=== PATIENT | male | born 1935 | race Caucasian/White ===

== ENCOUNTER → 2017-03-17 | Outpatient (CLI) | payer SELFPAY ==
[2017-03-17 08:27] LABS: Potassium 4.1 mmol/L (3.5-5.1)
== END | disposition home or self-care (01) ==
LOC: LABWHC1 07:32
PROVIDERS: ATTEND Internal Medicine Cardiovascular Disease
DX: I39 Endocarditis and heart valve disorders in diseases classified elsewhere (principal)
CPT/HCPCS: 36415; 80051; 82565; 84520

== ENCOUNTER 2018-11-08 13:11 | Inpatient (IN) | payer BC, MEDICARE ==
[2018-11-08 14:43] LABS: Basophils % (A) 1 %; Eosinophils # (A) 0.2 k/uL (0-0.7); Eosinophils % (A) 3 %; HCT 41.7 % (39.0-53.0); Hypochromasia Slight; Lymphocytes # (A) 0.6 k/uL (1.0-4.8); Lymphocytes % (A) 12 %; MCH 30.3 pg (25.0-35.0); MCHC 31.3 g/dL (31.0-37.0); MCV 96.8 fL (80.0-100.0); Mean Platelet Volume 7.5; Monocytes # (A) 0.5 k/uL (0-1.0); Monocytes % (A) 9 %; Neutrophils # (A) 4.1 k/uL (1.3-7.7); Neutrophils % (A) 74 %; Platelet Count 110 k/uL (150-450); WBC 5.5 k/uL (3.8-10.6)
[2018-11-08 14:48] LABS: INR 1.2 (<1.2); Partial Thromboplastin Time 25.3 sec (22.0-30.0); Prothrombin Time 12.4 sec (9.0-12.0)
[2018-11-08 14:49] LABS: Calcium 9.4 mg/dL (8.4-10.2)
--- NOTE | 2018-11-08 15:20 | XR ---
EXAMINATION TYPE: XR chest 2V DATE OF EXAM: 11/08/2018 COMPARISON: NONE HISTORY: Difficulty in breathing. TECHNIQUE: Frontal and lateral views of the chest are obtained. FINDINGS: There is redemonstration of cardiomegaly with dual lead pacemaker. Surgical clips epigastr ic region are redemonstrated. There is chronic emphysematous change with small to moderate-sized lef t pleural effusion. There is central vascular congestion present. Right lung is clear. The osseous st ructures are demineralized. Mild compression fracture is felt present in the mid to lower thoracic sp ine. Surgical clips epigastric region are noted. IMPRESSION: Chronic emphysematous change and cardiomegaly with mild central vascular congestion and small to moderate-sized left pleural effusion with associated left basilar atelectasis and/or infilt rate.
[2018-11-08 15:44] LABS: T4, Free (Free Thyroxine) 1.19 ng/dL (0.78-2.19)
--- NOTE | 2018-11-08 16:11 | ED ---
General Adult HPI - General Chief complaint: Recheck/Abnormal Lab/Rx Stated complaint: groin swelling,CARLITOS when laying down Time Seen by Provider: 11/08/18 13:39 Source: patient, family Mode of arrival: ambulatory Limitations: no limitations - History of Present Illness Initial comments: Patient is an 83-year-old male who presents to the emergency department from Dr. Majano's office. Patient has had 2 weeks of lower extremity and groin swelling. Family took him into [facility] 1.5 weeks ago and they placed the patient on Bactrim for possible cellulitis. Family reports that the patient did not have any laboratory studies or imaging performed at that time. Patient has been taking the medications as directed. The swelling has not improved. He followed up in Dr. Majano's office today who was concerned for the patient's respiratory status and lower extremity swelling. Family reports the patient has been unable to lay flat to sleep for "years". They also admit that the patient has had exertional shortness of breath which has been getting worse as of recent. The patient cannot ambulate across a room without stopping to rest. 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 He also has a "bad valve." They do believe he has a history of congestive heart failure also. He is on Lasix and has been taking it as directed. He has not missed any doses. He follows with Dr. Aceves in office. The family reports his last echo was 3 months ago. He was supposed to have his pacemaker battery changed one year ago. Family reports that Dr. Majano wanted the patient admitted and Dr. Aceves is going to change the patient's pacemaker battery during this admission. The patient is denying any pain. He denies any chest pain or abdominal pain. Denies any pain in his lower extremities. Does admit to abdominal and suprapubic fullness. Admits to exertional shortness of breath. No shortness of breath at rest. Patient is currently wearing oxygen for which he does not wear at home. He denies cough, hemoptysis, fevers, chills , nausea or vomiting. Denies a pleuritic chest pain or ripping or tearing sensation to his back. - Related Data Home Medications Medication Instructions Recorded Confirmed Atenolol [Tenormin] 25 mg PO DAILY 11/08/18 11/08/18 Ferrous Sulfate [Feosol] 325 mg PO DAILY 11/08/18 11/08/18 Furosemide [Lasix] 20 mg PO BID 11/08/18 11/08/18 Levothyroxine Sodium [Levoxyl] 25 mcg PO DAILY 11/08/18 11/08/18 Sulfamethoxazole/Trimethoprim 1 tab PO BID 11/08/18 11/08/18 [Bactrim DS 800-160 mg] Allergies Allergy/AdvReac Type Severity Reaction Status Date / Time No Known Allergies Allergy Verified 11/08/18 14:20 Review of Systems ROS Statement: Those systems with pertinent positive or pertinent negative responses have been documented in the HPI. ROS Other: All systems not noted in ROS Statement are negative. Past Medical History Past Medical History: Myocardial Infarction ([place]), Thyroid Disorder Additional Past Medical History / Comment(s): Pacemaker History of Any Multi-Drug Resistant Organisms: None Reported Past Surgical History: Pacemaker Past Psychological History: No Psychological Hx Reported Smoking Status: Former smoker Past Alcohol Use History: None Reported Past Drug Use History: None Reported General Exam Limitations: no limitations General appearance: alert, in no apparent distress Head exam: Present: atraumatic, normocephalic Eye exam: Present: normal appearance, other. Absent: scleral icterus Pupils: Present: normal accommodation ENT exam: Present: normal exam, mucous membranes moist Neck exam: Present: normal inspection, full ROM. Absent: tenderness, thyromegaly Respiratory exam: Present: wheezes, rales, other (The patient has mild tachypnea.). Absent: respiratory distress, accessory muscle use Cardiovascular Exam: Present: regular rate, normal rhythm, systolic murmur GI/Abdominal exam: Present: soft, normal bowel sounds. Absent: tenderness, guarding, rebound, rigid, pulsatile mass exam: Present: testicular tenderness, scrotal swelling, other (The patient has significant suprapubic swelling) External exam: Present: erythema. Absent: lesions Extremities exam: Present: tenderness, pedal edema, other (Patient has bilateral 4+ pitting edema with brawny edema. Significant skin flaking. There is also erythema noted. No pustular drainage) Neurological exam: Present: alert, oriented X3, CN II-XII intact Psychiatric exam: Present: normal affect, normal mood Skin exam: Present: warm, dry, erythema Course Vital Signs 11/08/18 11/08/18 11/08/18 13:14 15:00 17:18 Temperature 97.9 F Pulse Rate 62 60 60 Respiratory 18 18 18 Rate Blood Pressure 112/58 147/78 132/82 O2 Sat by Pulse 98 100 95 Oximetry - Reevaluation(s) Reevaluation #1: The patient was reexamined in the room. He is provided his results. I discussed the treatment plan and the patient and family agreed to admission 11/08/18 16:15 EKG Findings - EKG Comments: EKG Findings:: The patient has a ventricularly paced rhythm with a rate of 60. QRS 190, QTC of 500. EKG does not meet the Sgarbossa. Inverted T's noted in leads 1, aVL, V4 and V6 - [place], Pacemaker, Normal: Pacemaker: ventricular pacing w/capture (except when refractory) Medical Decision Making - Medical Decision Making The patient was placed into room 5. He is placed on continuous pulse ox and cardiac monitoring. The patient is placed on 2 L of O2. Physical exam reveals brawny edema of the suprapubic region and bilateral lower extremities. I did discuss the diagnosis, differential diagnosis and treatment options. The patient has laboratory studies drawn and he is sent for a chest x-ray. He did place a peripheral IV with saline lock. Upon return of the results I discussed them with the patient and his family at bedside. The patient has an elevated BNP and creatinine. His chest x-ray demonstrated pulmonary congestion with a left-sided pleural effusion. I did recommend admission to the hospital. The patient was admitted to Dr. Garcia. He did accept admission of the patient. I ordered 40 mg of Lasix IV. The patient will have an echo formed. I will place the patient on antibiotics for concern of overlying cellulitis. I will consult Dr. Tate from cardiology to help manage the patient. The patient remained in stable condition awaiting transport to the floor Differential diagnoses: Acute exacerbation of congestive heart failure, cellulitis bilateral lower extremities, acute hypoxic respiratory failure, chronic kidney disease, valvular heart disease - Differential Diagnosis Acute exacerbation of congestive heart failure - Lab Data Result diagrams: 11/08/18 14:18 11/08/18 14:18 Lab Results 11/08/18 11/08/18 11/08/18 Range/Units 14:18 14:18 14:18 WBC 5.5 (3.8-10.6) k/uL RBC 4.30 (4.30-5.90) m/uL Hgb 13.0 (13.0-17.5) gm/dL Hct 41.7 (39.0-53.0) % MCV 96.8 (80.0-100.0) fL MCH 30.3 (25.0-35.0) pg MCHC 31.3 (31.0-37.0) g/dL RDW 16.0 H (11.5-15.5) % Plt Count 110 L (150-450) k/uL Neutrophils % 74 % Lymphocytes % 12 % Monocytes % 9 % Eosinophils % 3 % Basophils % 1 % Neutrophils # 4.1 (1.3-7.7) k/uL Lymphocytes # 0.6 L (1.0-4.8) k/uL Monocytes # 0.5 (0-1.0) k/uL Eosinophils # 0.2 (0-0.7) k/uL Basophils # 0.0 (0-0.2) k/uL Hypochromasia Slight PT 12.4 H (9.0-12.0) sec INR 1.2 H (<1.2) APTT 25.3 (22.0-30.0) sec Sodium (137-145) mmol/L Potassium (3.5-5.1) mmol/L Chloride (98-107) mmol/L Carbon Dioxide (22-30) mmol/L Anion Gap mmol/L BUN (9-20) mg/dL Creatinine (0.66-1.25) mg/dL Est GFR (CKD-EPI)AfAm (>60 ml/min/1.73 sqM) Est GFR (CKD-EPI)NonAf (>60 ml/min/1.73 sqM) Glucose (74-99) mg/dL Calcium (8.4-10.2) mg/dL Troponin I 0.018 (0.000-0.034) ng/mL NT-Pro-B Natriuret Pep pg/mL TSH (0.465-4.680) mIU/L Free T4 (0.78-2.19) ng/dL 11/08/18 11/08/18 Range/Units 14:18 14:18 WBC (3.8-10.6) k/uL RBC (4.30-5.90) m/uL Hgb (13.0-17.5) gm/dL Hct (39.0-53.0) % MCV (80.0-100.0) fL MCH (25.0-35.0) pg MCHC (31.0-37.0) g/dL RDW (11.5-15.5) % Plt Count (150-450) k/uL Neutrophils % % Lymphocytes % % Monocytes % % Eosinophils % % Basophils % % Neutrophils # (1.3-7.7) k/uL Lymphocytes # (1.0-4.8) k/uL Monocytes # (0-1.0) k/uL Eosinophils # (0-0.7) k/uL Basophils # (0-0.2) k/uL Hypochromasia PT (9.0-12.0) sec INR (<1.2) APTT (22.0-30.0) sec Sodium 141 (137-145) mmol/L Potassium 5.0 (3.5-5.1) mmol/L Chloride 104 (98-107) mmol/L Carbon Dioxide 29 (22-30) mmol/L Anion Gap 8 mmol/L BUN 21 H (9-20) mg/dL Creatinine 1.30 H (0.66-1.25) mg/dL Est GFR (CKD-EPI)AfAm 59 (>60 ml/min/1.73 sqM) Est GFR (CKD-EPI)NonAf 51 (>60 ml/min/1.73 sqM) Glucose 93 (74-99) mg/dL Calcium 9.4 (8.4-10.2) mg/dL Troponin I (0.000-0.034) ng/mL NT-Pro-B Natriuret Pep 3590 pg/mL TSH 9.470 H (0.465-4.680) mIU/L Free T4 1.19 (0.78-2.19) ng/dL - EKG Data Rate: normal EKG Comments: Ventricularly paced rhythm with a rate of 60. QRS 190 QTC of 500 When compared to previous EKG there are: previous EKG unavailable Interpretation: nonspecific ST-T wave changes, other (Ventricularly paced rhythm ) - Radiology Data Radiology results: report reviewed, image reviewed Pulmonary vascular congestion with left pleural effusion Disposition Clinical Impression: Congestive heart failure Disposition: ADMITTED IP TO THIS HOSP Condition: Stable Is patient prescribed a controlled substance at d/c from ED?: No Decision to Admit Reason: Admit from EC Decision Date: 11/08/18 Decision Time: 04:30
[2018-11-08] MEDS ORDERED: FUROSEMIDE 10 MG/ML 2 ML VIAL IV STA (16:26)
[2018-11-08] MEDS ORDERED: ACETAMINOPHEN TAB 325 MG TAB PO PRN (16:46)
[2018-11-08] MEDS ORDERED: NALOXONE 0.4 MG/ML 1 ML VIAL IV PRN (16:46)
[2018-11-08] MEDS: ceFAZolin 1,000 MG in DEXTROSE/WATER 1 50ML.BAG IVPB SCH (23:36)
[2018-11-09] MEDS ORDERED: LEVOTHYROXINE 25 MCG TAB PO SCH (06:30)
[2018-11-09 06:44] LABS: Basophils % (A) 1 %; Eosinophils # (A) 0.2 k/uL (0-0.7); Eosinophils % (A) 4 %; HCT 39.9 % (39.0-53.0); HGB 12.2 gm/dL (13.0-17.5); Hypochromasia Moderate; Lymphocytes # (A) 0.6 k/uL (1.0-4.8); Lymphocytes % (A) 11 %; MCH 29.8 pg (25.0-35.0); MCHC 30.7 g/dL (31.0-37.0); MCV 97.2 fL (80.0-100.0); Mean Platelet Volume 7.7; Monocytes # (A) 0.4 k/uL (0-1.0); Monocytes % (A) 8 %; Neutrophils # (A) 3.6 k/uL (1.3-7.7); Neutrophils % (A) 74 %; Platelet Count 112 k/uL (150-450); RDW 15.7 % (11.5-15.5); WBC 4.8 k/uL (3.8-10.6)
[2018-11-09 07:00] LABS: Calcium 9.5 mg/dL (8.4-10.2); Potassium 4.8 mmol/L (3.5-5.1)
[2018-11-09] MEDS: ATENOLOL 25 MG TAB PO SCH (08:15)
[2018-11-09] MEDS: ceFAZolin 1,000 MG in DEXTROSE/WATER 1 50ML.BAG IVPB SCH ×2 (08:16→15:52)
[2018-11-09] MEDS ORDERED: FUROSEMIDE 20 MG TAB PO SCH (09:00)
--- NOTE | 2018-11-09 09:43 | P.CRDCN ---
History of Present Illness Consult date: 11/09/18 Requesting physician: Bipin Garcia Consult reason: congestive heart failure Chief complaint: Swelling and shortness of breath History of present illness: This is an 83-year-old gentleman who follows with Dr. Tate in the office, most of the history was obtained from his daughter who is at bedside. Patient does have history of permanent pacemaker implant, she states that the last time the patient saw Dr. Aceves in the office he was told that the battery at some point soon will need to be changed. Patient does have history of hypothyroidism, hypertension. Patient follows with Dr. Majano as his primary care doctor, over the past couple of weeks patient has had significant amount of lower extremity swelling up to his bilateral groin areas, according to the daughter they did go to [facility] one and a half weeks ago, patient was placed on Bactrim at that time for possible cellulitis. He continued to have further swelling and was also getting quite short of breath, he followed up in Dr. Majano's office, and subsequently was advised to come to the hospital for further evaluation and treatment. Chest x-ray shows chronic emphysema change and cardiomegaly with mild central vascular congestion and small to moderate sized left pleural effusion. EKG shows a ventricular paced rhythm. Blood pressure 112/60 with a heart rate in the 60s, 98% on room air. Most recent echocardiogram with Doppler study performed in the office showed an ejection fraction of 45%, severe mitral regurgitation and mild to moderate aortic regurg. White blood cell count 4.8, hemoglobin 12.2, platelet count 112. Sodium 140, potassium 4.8, BUN 20 and creatinine 1.4. Troponins 0.018, 0.016, 0.020. TSH 9.4 free T4 1 0.1. BNP level 3590. We will discontinue the oral diuretics and start the patient on IV Lasix, obtain an echocardiogram with Doppler study. Past Medical History Past Medical History: Eye Disorder, Hearing Disorder / Deafness, Myocardial Infarction ([place]), Thyroid Disorder Additional Past Medical History / Comment(s): Pacemaker Last Myocardial Infarction Date:: 2007 History of Any Multi-Drug Resistant Organisms: None Reported Past Surgical History: Hernia Repair, Pacemaker Past Anesthesia/Blood Transfusion Reactions: No Reported Reaction Type of Cardiac Device: Permanent Pacemaker Device Placement Date:: 2007 Past Psychological History: No Psychological Hx Reported Smoking Status: Former smoker Past Alcohol Use History: None Reported Past Drug Use History: None Reported Medications and Allergies Home Medications Medication Instructions Recorded Confirmed Type Atenolol [Tenormin] 25 mg PO DAILY 11/08/18 11/08/18 History Ferrous Sulfate [Feosol] 325 mg PO DAILY 11/08/18 11/08/18 History Furosemide [Lasix] 20 mg PO BID 11/08/18 11/08/18 History Levothyroxine Sodium [Levoxyl] 25 mcg PO DAILY 11/08/18 11/08/18 History Sulfamethoxazole/Trimethoprim 1 tab PO BID 11/08/18 11/08/18 History [Bactrim DS 800-160 mg] Allergies Allergy/AdvReac Type Severity Reaction Status Date / Time No Known Allergies Allergy Verified 11/08/18 14:20 Physical Exam Vitals: Vital Signs Temp Pulse Pulse Resp BP BP Pulse Ox 11/09/18 08:00 98.2 F 60 18 128/60 92 L 11/09/18 04:00 98 F 57 L 18 124/60 95 11/09/18 00:00 61 18 11/08/18 23:48 98.5 F 61 18 118/59 96 11/08/18 20:00 98.4 F 60 20 135/61 95 11/08/18 19:46 98.4 F 60 20 135/61 95 11/08/18 19:13 98.7 F 62 17 151/67 96 11/08/18 18:49 64 81 H 141/73 11/08/18 17:18 60 18 132/82 95 11/08/18 15:00 60 18 147/78 100 11/08/18 13:14 97.9 F 62 18 112/58 98 Intake and Output 11/08/18 11/09/18 11/09/18 22:59 06:59 14:59 Intake Total 120 Output Total 1300 1000 Balance -1300 -1000 120 Intake: Oral 120 Output: Urine 1300 1000 Other: # Voids 1 Weight 86.591 kg 86.6 kg PHYSICAL EXAMINATION: GENERAL: 83-year-old gentleman in no acute distress at the time of my examination HEENT: Head is atraumatic, normocephalic. Pupils equal, round. Sclera anicteric. Conjunctiva are clear. Mucous membranes of the mouth are moist. Neck is supple. There is elevated jugular venous pressure. No bruit is heard. HEART EXAMINATION: Heart S1-S2 a systolic murmur is heard CHEST EXAMINATION: Lungs reveal diminished air entry to the left posterior base according her way up. ABDOMEN: Soft, nontender. Bowel sounds are heard. No organomegaly noted. EXTREMITIES: 2+ peripheral pulses evidence of edema in bilateral lower extremities up to the groins bilaterally. Chronic venous stasis and ear erythema noted bilaterally. . NEUROLOGIC patient is awake, alert and oriented X3. . Results 11/09/18 05:52 11/09/18 05:52 Cardiac Enzymes 11/08/18 11/08/18 11/09/18 Range/Units 14:18 19:41 02:10 Troponin I 0.018 0.016 0.020 (0.000-0.034) ng/mL Coagulation 11/08/18 Range/Units 14:18 PT 12.4 H (9.0-12.0) sec APTT 25.3 (22.0-30.0) sec CBC 11/08/18 11/09/18 Range/Units 14:18 05:52 WBC 5.5 4.8 (3.8-10.6) k/uL RBC 4.30 4.10 L (4.30-5.90) m/uL Hgb 13.0 12.2 L (13.0-17.5) gm/dL Hct 41.7 39.9 (39.0-53.0) % Plt Count 110 L 112 L (150-450) k/uL Comprehensive Metabolic Panel 11/08/18 11/09/18 Range/Units 14:18 05:52 Sodium 141 140 (137-145) mmol/L Potassium 5.0 4.8 (3.5-5.1) mmol/L Chloride 104 103 (98-107) mmol/L Carbon Dioxide 29 31 H (22-30) mmol/L BUN 21 H 20 (9-20) mg/dL Creatinine 1.30 H 1.42 H (0.66-1.25) mg/dL Glucose 93 96 (74-99) mg/dL Calcium 9.4 9.5 (8.4-10.2) mg/dL Current Medications Generic Name Dose Route Start Last Admin Trade Name Freq PRN Reason Stop Dose Admin Acetaminophen 650 mg 11/08/18 16:46 Tylenol Tab PO Q6HR PRN Mild Pain or Fever > 100.5 Atenolol 25 mg 11/09/18 09:00 11/09/18 08:15 Tenormin PO 25 mg DAILY TRACY Administration Ferrous Sulfate 325 mg 11/09/18 09:00 Feosol PO DAILY TRACY Furosemide 20 mg 11/09/18 09:00 Lasix PO 0900,1700 TARCY Cefazolin Sodium/Dextrose 1, 50 mls @ 100 mls/hr 11/09/18 00:00 11/09/18 08:16 000 mg/ IV Solution IVPB 100 mls/hr Q8HR TRACY Administration Levothyroxine Sodium 25 mcg 11/09/18 06:30 11/09/18 06:44 Synthroid PO 25 mcg DAILY@0630 TRACY Administration Naloxone HCl 0.2 mg 11/08/18 16:46 Narcan IV Q2M PRN Opioid Reversal Intake and Output 11/08/18 11/09/18 11/09/18 22:59 06:59 14:59 Intake Total 120 Output Total 1300 1000 Balance -1300 -1000 120 Intake: Oral 120 Output: Urine 1300 1000 Other: # Voids 1 Weight 86.591 kg 86.6 kg 11/09/18 05:52 11/09/18 05:52 EKG Interpretations (text) EKG shows a ventricular paced rhythm. Assessment and Plan Plan: Assessment and plan #1 symptoms of bilateral lower extremity edema and shortness of breath suggestive of congestive cardiac failure. Diastolic acute on chronic. Most recent echo performed in the office showed an ejection fraction of 45% with severe mitral regurg and mild to moderate aortic regurg. #2 nicotine dependence #3 history of prior pacemaker implantation #4 hypertension #5 hypothyroidism #6 acute on chronic renal insufficiency Plan We will discontinue the oral diuretics and start the patient on IV Lasix. Obt ain echocardiogram with Doppler study. Consider the addition of Entresto. Further recommendations to follow. DNP note has been reviewed, I agree with a documented findings and plan of care. Patient was seen and examined.
[2018-11-09 10:19] VITALS: BMI 27.3
--- NOTE | 2018-11-09 10:43 | P.HPIM ---
History of Present Illness H&P Date: 11/09/18 This is an 83-year-old male patient of Dr. Majano. Patient presented to the ER with complaints of increased lower extremity and groin swelling. Patient reports this is been occurring for 2 weeks. About a week and a half ago patient presented to his PCP which further recommended patient to go to [facility]. At that time patient was discharged on Bactrim for possible cellulitis. Patient reports that the swelling has not improved. Patient presented back to Dr. Majano's office in which he expressed concerns for possible CHF. Patient reports he has been unable to lay flat for years and also gets very short of breath with ambulation. Patient is on home Lasix in which she has been taking. Patient does believe he has history of CHF and follows with cardiology services. Patient's additional medical history includes myocardial infarction, thyroid disease, permanent pacemaker in 2007, deafness and ex-smoker. Chest x-ray completed showing chronic apathy matter change in ca rdiomegaly with mild central vascular congestion and small to moderate left pleural effusion with associated left basal atelectasis and/or infiltrate. Cardiology services consulted. 2-D echo has been ordered. Patient started on IV Lasix. Patient also started on IV antibiotics for possible lower extremity cellulitis. At this time patient denies chest pain. Patient does complain of some shortness of breath with lying flat inactivity. Patient denies nausea vomiting or diarrhea. Patient denies any urinary burning or frequency. Review of Systems Please refer to HPI otherwise unremarkable Past Medical History Past Medical History: Eye Disorder, Hearing Disorder / Deafness, Myocardial Infarction ([place]), Thyroid Disorder Additional Past Medical History / Comment(s): Pacemaker Last Myocardial Infarction Date:: 2007 History of Any Multi-Drug Resistant Organisms: None Reported Past Surgical History: Hernia Repair, Pacemaker Past Anesthesia/Blood Transfusion Reactions: No Reported Reaction Type of Cardiac Device: Permanent Pacemaker Device Placement Date:: 2007 Past Psychological History: No Psychological Hx Reported Smoking Status: Former smoker Past Alcohol Use History: None Reported Past Drug Use History: None Reported Medications and Allergies Home Medications Medication Instructions Recorded Confirmed Type Atenolol [Tenormin] 25 mg PO DAILY 11/08/18 11/08/18 History Ferrous Sulfate [Feosol] 325 mg PO DAILY 11/08/18 11/08/18 History Furosemide [Lasix] 20 mg PO BID 11/08/18 11/08/18 History Levothyroxine Sodium [Levoxyl] 25 mcg PO DAILY 11/08/18 11/08/18 History Sulfamethoxazole/Trimethoprim 1 tab PO BID 11/08/18 11/08/18 History [Bactrim DS 800-160 mg] Allergies Allergy/AdvReac Type Severity Reaction Status Date / Time No Known Allergies Allergy Verified 11/08/18 14:20 Physical Exam Vitals: Vital Signs Temp Pulse Pulse Resp BP BP Pulse Ox 11/09/18 08:00 98.2 F 60 18 128/60 92 L 11/09/18 04:00 98 F 57 L 18 124/60 95 11/09/18 00:00 61 18 11/08/18 23:48 98.5 F 61 18 118/59 96 11/08/18 20:00 98.4 F 60 20 135/61 95 11/08/18 19:46 98.4 F 60 20 135/61 95 11/08/18 19:13 98.7 F 62 17 151/67 96 11/08/18 18:49 64 81 H 141/73 11/08/18 17:18 60 18 132/82 95 11/08/18 15:00 60 18 147/78 100 11/08/18 13:14 97.9 F 62 18 112/58 98 Intake and Output 11/08/18 11/09/18 11/09/18 22:59 06:59 14:59 Intake Total 120 Output Total 1300 1000 Balance -1300 -1000 120 Intake: Oral 120 Output: Urine 1300 1000 Other: # Voids 1 Weight 86.591 kg 86.6 kg 86.6 kg Head normocephalic Neck supple Lungs diminished bilaterally Heart regular rate and rhythm S1-S2, no rub or gallop Abdomen is soft nontender nondistended positive bowel sounds no hepatosplenomegaly Extremities +1 lower extreme any edema and +2 scrotal edema. Erythema noted to bilateral lower extremities Neuro alert and orientated to 3 Results CBC & Chem 7: 11/09/18 05:52 11/09/18 05:52 Labs: Abnormal Lab Results - Last 24 Hours (Table) 11/08/18 11/08/18 11/08/18 Range/Units 14:18 14:18 14:18 RBC (4.30-5.90) m/uL Hgb (13.0-17.5) gm/dL MCHC (31.0-37.0) g/dL RDW 16.0 H (11.5-15.5) % Plt Count 110 L (150-450) k/uL Lymphocytes # 0.6 L (1.0-4.8) k/uL PT 12.4 H (9.0-12.0) sec INR 1.2 H (<1.2) Carbon Dioxide (22-30) mmol/L BUN 21 H (9-20) mg/dL Creatinine 1.30 H (0.66-1.25) mg/dL TSH 9.470 H (0.465-4.680) mIU/L 11/09/18 11/09/18 Range/Units 05:52 05:52 RBC 4.10 L (4.30-5.90) m/uL Hgb 12.2 L (13.0-17.5) gm/dL MCHC 30.7 L (31.0-37.0) g/dL RDW 15.7 H (11.5-15.5) % Plt Count 112 L (150-450) k/uL Lymphocytes # 0.6 L (1.0-4.8) k/uL PT (9.0-12.0) sec INR (<1.2) Carbon Dioxide 31 H (22-30) mmol/L BUN (9-20) mg/dL Creatinine 1.42 H (0.66-1.25) mg/dL TSH (0.465-4.680) mIU/L Thrombosis Risk Factor Assmnt - Choose All That Apply Any of the Below Risk Factors Present?: Yes Each Factor Represents 1 point: Obesity (BMI >25) Other Risk Factors: Yes Each Risk Factor Represents 3 Points: Age 75 years or older Other congenital or acquired thrombophilia - If yes, enter type in comment: No Thrombosis Risk Factor Assessment Total Risk Factor Score: 4 Thrombosis Risk Factor Assessment Level: Moderate Risk Assessment and Plan Assessment: 1. Bilateral lower extremity edema with shortness of breath likely due to acute on chronic diastolic heart failure exacerbation. Patient started on IV Lasix per cardiology services. Patient had a recent 2-D echo performed in cardiology office showing an EF of 45% with severe mitral regurg and mild to moderate aortic regurg. Repeat 2-D echo has been ordered for this admission. 2. Possible lower extremity cellulitis. Patient started on Kefzol IV antibiotics 3. Acute on chronic renal insufficiency. Creatinine 1.42. We'll continue to monitor closely 4. Hypothyroidism. TSH level elevated at 9.470. Will increase Synthroid dose. 5. Permanent pacemaker implantation in 2007 6. Essential hypertension 7. Previous history of myocardial infarction 8. Deafness GI prophylaxis Protonix. DVT prophylaxis Lovenox Time with Patient: Greater than 30 (Greater than 60% of the total time spent in counseling and coordination of care. I performed an examination of the patient and discussed their management with the Nurse Practitioner. I have reviewed the Nurse Practitioner's notes and agree with the documented findings and plan of care)
--- NOTE | 2018-11-09 11:02 | US ---
EXAMINATION TYPE: US chest DATE OF EXAM: 11/09/2018 COMPARISON: NONE CLINICAL HISTORY: assess left effusion. sob TECHNIQUE: Targeted ultrasound of the posterior lower LEFT EXAM MEASUREMENTS: Left Pleural Effusion pocket size: 11.1 cm Left skin surface to fluid distance: 2.7 cm Left side marked for possible thoracentesis outside the dept. Pulmonologists are able to review the images in the patient?s EMR. IMPRESSIONS: Left pleural effusion
[2018-11-09] MEDS: FUROSEMIDE 10 MG/ML 4 ML VIAL IV SCH ×2 (12:30→21:46)
[2018-11-09] MEDS: FERROUS SULFATE 325 MG TAB PO SCH (12:31)
--- NOTE | 2018-11-09 16:53 | XR ---
EXAMINATION TYPE: XR chest 1V DATE OF EXAM: 11/09/2018 COMPARISON: Yesterday HISTORY: Thoracentesis TECHNIQUE: Single frontal view of the chest is obtained. FINDINGS: Heart is enlarged. There is mild pulmonary congestion. There is atheromatous aorta. There is a left axillary pacemaker. There are chest leads. Costophrenic angles are clear. IMPRESSION: Mild congestive heart failure that is improved compared to yesterday. There is significa nt decreased left pleural fluid. No pneumothorax.
--- NOTE | 2018-11-09 17:17 | PCN ---
PROCEDURE NOTE PROCEDURE PERFORMED: Left-sided thoracentesis. PREOPERATIVE DIAGNOSIS: Large left pleural effusion. POSTOPERATIVE DIAGNOSIS: Large left pleural effusion. ANESTHESIA USED: 2 mL of 1% lidocaine. PROCEDURE IN DETAIL: The patient was placed in a sitting upright position, the area below the left scapula was prepared in a sterile fashion and drapes were applied. The area of the fluid was earlier localized by ultrasound guidance. At the level of the 9th intercostal space and tip of the scapula, the area was anesthetized using lidocaine. Then, a 26-gauge needle was inserted at the same site, advanced into the pleural space until the fluid was localized with the needle. Then a small tiny incision was made in the skin, and a standard needle with catheter were used, advanced into the same site into the pleural space until fluid was obtained. As soon as the fluid was obtained, the catheter was advanced out of the needle and the needle was pulled out of the pleural space. Freely flowing fluid was removed, roughly 1450 mL were drained from the left pleural space. Procedure was well tolerated, no evidence of any complications. Chest x-ray was ordered postoperatively. The fluid was sent for different diagnostic studies, it looked questionably clear, and grossly suggestive of transudative effusion. MMODL / IJN: [id number] /
--- NOTE | 2018-11-09 17:24 | P.CNPUL ---
History of Present Illness Consult date: 11/09/18 Requesting physician: Bipin Garcia Reason for consult: pleural effusion Chief complaint: Shortness of breath History of present illness: This is an 83-year-old white male with history of coronary artery disease, previous MT, history of pacemaker implantation, patient normally sees Dr. Aceves on outpatient basis for his cardiac condition. Patient is also known to have history of hypertension, hypothyroidism, and he normally follows up with Dr. Majano as his primary care physician. Over the last couple of weeks, patient has been experiencing swelling in lower extremities, extending all the way up to the groin area. Patient was seen at [facility], and he was admitted about a few days ago, treated for cellulitis of the lower extremities with Bactrim, and he continued to have increased swelling in lower extremities. He saw his primary care physician who recommended that he goes to the emergency room. Patient was seen and he was found to have congestive heart failure bive ntricular in nature, and he was also found to have a good sized left-sided pleural effusion hence I was asked to see the patient on consultation. Patient was already seen by cardiology, and recommended Lasix at 40 mg IV push every 12 hours, I evaluated the patient, reviewed his chest x-ray and ultrasound of the chest, and proceeded to left sided thoracentesis. I was able to drain 1450 mL of fluid from the left pleural space. Chest x-ray showed complete resolution of the pleural effusion after the procedure. Looking back at his previous workup, patient is known to have history of LV dysfunction and ejection fraction is in the range of 45% he has history of severe mitral regurgitation and moderate aortic regurgitation. His BNP level on this admission was 3590. Patient had mostly shortness of breath and swelling in the legs, he had no chest pain, no nausea no vomiting no abdominal pain. No headaches no blurred vision no dizziness. No melena, no hematemesis, no dysuria and no frequency no urgency. Has been complaining however of swelling of lower extremities and some redness in both lower extremities for quite some time. Review of Systems 14 point review of systems were obtained, please refer to pertinent positives in HPI, otherwise remaining systems are negative. Past Medical History Past Medical History: Eye Disorder, Hearing Disorder / Deafness, Myocardial Infarction (MT), Thyroid Disorder Additional Past Medical History / Comment(s): Pacemaker Last Myocardial Infarction Date:: 2007 History of Any Multi-Drug Resistant Organisms: None Reported Past Surgical History: Hernia Repair, Pacemaker Past Anesthesia/Blood Transfusion Reactions: No Reported Reaction Type of Cardiac Device: Permanent Pacemaker Device Placement Date:: 2007 Past Psychological History: No Psychological Hx Reported Smoking Status: Former smoker Past Alcohol Use History: None Reported Past Drug Use History: None Reported Medications and Allergies Home Medications Medication Instructions Recorded Confirmed Type Atenolol [Tenormin] 25 mg PO DAILY 11/08/18 11/08/18 History Ferrous Sulfate [Feosol] 325 mg PO DAILY 11/08/18 11/08/18 History Furosemide [Lasix] 20 mg PO BID 11/08/18 11/08/18 History Levothyroxine Sodium [Levoxyl] 25 mcg PO DAILY 11/08/18 11/08/18 History Sulfamethoxazole/Trimethoprim 1 tab PO BID 11/08/18 11/08/18 History [Bactrim DS 800-160 mg] Allergies Allergy/AdvReac Type Severity Reaction Status Date / Time No Known Allergies Allergy Verified 11/08/18 14:20 Physical Exam Vitals: Vital Signs Temp Pulse Pulse Resp BP BP Pulse Ox 11/09/18 15:11 98.1 F 61 18 127/59 98 11/09/18 12:00 99.1 F 60 20 115/60 91 L 11/09/18 08:00 98.2 F 60 18 128/60 92 L 11/09/18 04:00 98 F 57 L 18 124/60 95 11/09/18 00:00 61 18 11/08/18 23:48 98.5 F 61 18 118/59 96 11/08/18 20:00 98.4 F 60 20 135/61 95 11/08/18 19:46 98.4 F 60 20 135/61 95 11/08/18 19:13 98.7 F 62 17 151/67 96 11/08/18 18:49 64 81 H 141/73 11/08/18 17:18 60 18 132/82 95 Intake and Output 11/09/18 11/09/18 11/09/18 06:59 14:59 22:59 Intake Total 240 Output Total 7755 625 4437 Balance -1000 40 -1000 Intake: Oral 240 Output: Urine 0086 518 1461 Other: # Voids 1 1 3 Weight 86.6 kg 86.6 kg Physical Exam: Revealed an 83-year-old white male in no distress. Very pleasant, on room air. Head: Atraumatic, normocephalic. HEENT:[Neck is supple.] [No neck masses.] [No thyromegaly.] [ Positive JVD.] PERRLA, EOMI, there is evidence of drooping of the left upper eyelid , moist mucous membranes were noted. Chest: Diminished breath sounds at the bases especially at the left base with dullness..] Cardiac Exam: [Normal S1 and S2, no S3 gallop, 2/6 systolic murmur thought the precordium. Abdomen: [Soft, nontender, no megaly, no rebound, no guarding, normal bowel sounds.] Extremities: [No clubbing, 2+ bipedal edema, extending from the ankles all the way up to the groin. Venous stasis changes noted, and erythema noted bilaterally. no cyanosis.] Diminished distal pulses bilaterally. 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 Right hand seems to be quite deformed. Neurological Exam: [No focal neurologic deficit. Alert and oriented 3. Psychiatric: Normal mood, affect and mental status examination. Lymphatics: No lymphadenopathy. Skin: Evidence of erythema of lower extremities noted, both lower extremities are warm to touch.] Results - Laboratory Findings CBC and BMP: 11/09/18 05:52 11/09/18 05:52 PT/INR, D-dimer PT 12.4 sec (9.0-12.0) H 11/08/18 14:18 INR 1.2 (<1.2) H 11/08/18 14:18 Abnormal lab findings: Abnormal Labs 11/08/18 11/08/18 11/08/18 14:18 14:18 14:18 RBC Hgb MCHC RDW 16.0 H Plt Count 110 L Lymphocytes # 0.6 L PT 12.4 H INR 1.2 H Carbon Dioxide BUN 21 H Creatinine 1.30 H TSH 9.470 H 11/09/18 11/09/18 05:52 05:52 RBC 4.10 L Hgb 12.2 L MCHC 30.7 L RDW 15.7 H Plt Count 112 L Lymphocytes # 0.6 L PT INR Carbon Dioxide 31 H BUN Creatinine 1.42 H TSH - Diagnostic Findings Chest x-ray: image reviewed (Chest x-ray clearly showed evidence of congestive heart failure, interstitial edema, and moderate sized left pleural effusion. There is also cardiomegaly and dual lead pacemaker noted.) Assessment and Plan Assessment: Impression: 1 acute congestive heart failure, mostly systolic in nature, ejection fraction is 45% and is also related to significant valvular heart disease with severe mitral regurgitation and moderate aortic regurgitation. 2 moderate sized left pleural effusion, I will arrange for thoracentesis, this was done and I was able to drain 1450 mL of fluid. 3 suspect acute on chronic renal failure stage III, likely cardiorenal in nature. 4 severe mitral valve and aortic valve disease contributing most likely significantly to his congestive heart failure. 5 benign essential hypertension 6 history of hypothyroidism 7 nicotine dependence syndrome patient was counseled regarding smoking cess ation. 8 prior pacemaker implantation for previous history of cardiac arrhythmia. 9 Suspect cellulitis of both lower extremities. Recommendation: I fully agree with the present treatment plan, including diuretics, he is presently on Lasix 40 mg IV push every 12 hours, he is on Lovenox subcu daily, cefazolin, is also on Protonix, levothyroxine, and atenolol. I went ahead and performed a left-sided thoracentesis, and I was able to obtain 1450 mL of fluid which looked fairly clear and most likely transudative in nature. This is clearly related to his underlying congestive heart failure. We'll continue to follow. Time with Patient: Greater than 30
[2018-11-09 19:14] LABS: Appearance,BF Clear; Color,BF Yellow; Mononuclear WBC,Body Fluid 82 %; Nucleated Cells, Body Fluid 59 /uL; Polynuclear WBC,Body Fluid 18 %; RBC, Body Fluid 79 /uL
[2018-11-10] MEDS: ceFAZolin 1,000 MG in DEXTROSE/WATER 1 50ML.BAG IVPB SCH ×4 (00:07→23:21)
[2018-11-10 02:27] LABS: Total Protein, Body Fluid 1850 mg/dL
[2018-11-10] MEDS: PANTOPRAZOLE 40 MG TABLET PO SCH (06:21)
[2018-11-10] MEDS: LEVOTHYROXINE 50 MCG TAB PO SCH (06:21)
[2018-11-10] MEDS ORDERED: LEVOTHYROXINE 75 MCG TAB PO SCH (06:30)
[2018-11-10 06:39] LABS: Basophils % (A) 1 %; Eosinophils # (A) 0.2 k/uL (0-0.7); Eosinophils % (A) 3 %; HCT 35.7 % (39.0-53.0); HGB 11.4 gm/dL (13.0-17.5); Lymphocytes # (A) 0.6 k/uL (1.0-4.8); Lymphocytes % (A) 12 %; MCH 30.7 pg (25.0-35.0); MCV 95.9 fL (80.0-100.0); Mean Platelet Volume 7.1; Monocytes # (A) 0.4 k/uL (0-1.0); Monocytes % (A) 8 %; Neutrophils # (A) 3.9 k/uL (1.3-7.7); Neutrophils % (A) 74 %; Platelet Count 109 k/uL (150-450); RBC 3.72 m/uL (4.30-5.90); RDW 15.9 % (11.5-15.5); WBC 5.3 k/uL (3.8-10.6)
[2018-11-10 07:07] LABS: Albumin 3.3 g/dL (3.5-5.0); Potassium 4.1 mmol/L (3.5-5.1); Total Protein 6.1 g/dL (6.3-8.2)
[2018-11-10] MEDS: ATENOLOL 25 MG TAB PO SCH (08:47)
[2018-11-10] MEDS: FERROUS SULFATE 325 MG TAB PO SCH (08:47)
[2018-11-10] MEDS: ENOXAPARIN 40 MG/0.4 ML SYRINGE SQ SCH (08:47)
[2018-11-10] MEDS: FUROSEMIDE 10 MG/ML 4 ML VIAL IV SCH (08:48)
--- NOTE | 2018-11-10 08:59 | ECHOF ---
Referral Reason:shortness of breath, heart failure MEASUREMENTS -------- HEIGHT: 180.3 cm WEIGHT: 86.2 kg BP: 124/60 RVIDd: 4.9 cm (< 3.3) IVSd: 1.3 cm (0.6 - 1.1) LVIDd: 3.4 cm (3.9 - 5.3) LVPWd: 1.4 cm (0.6 - 1.1) IVSs: 1.6 cm LVIDs: 2.6 cm LVPWs: 1.5 cm LAESV Index (A-L): 80.26 ml/m Ao Diam: 3.1 cm (2.0 - 3.7) AV Cusp: 1.4 cm (1.5 - 2.6) LA Diam: 5.1 cm (2.7 - 3.8) MV EXCURSION: 11.931 mm (> 18.000) MV EF SLOPE: 33 mm/s (70 - 150) EPSS: 0.6 cm MV E Rajiv: 2.13 m/s MV DecT: 663 ms MV A Rajiv: 0.55 m/s MV E/A Ratio: 3.86 AR PHT: 204 ms RAP: 5.00 mmHg RVSP: 70.97 mmHg FINDINGS -------- Paced rhythm. This was a technically difficult study with suboptimal views. The left ventricular size is normal. There is mild concentric left ventricular hypertrophy. Overa ll left ventricular systolic function is moderate-severely impaired with, an EF between 30 - 35 %. There is paradoxical/dysynergic septal motion consistent with right ventricular volume overload and/o r elevated right ventricular end-diastolic pressure. Basal inferoseptal LV wall motion is hypokinet ic. Basal anteroseptal LV wall motion is hypokinetic. Mid inferoseptal LV wall motion is hypoki netic. Mid anteroseptal LV wall motion is hypokinetic. Apical septum LV wall motion is hypokine tic. Septum is hypokinetic Basal inferolateral appears hypokinetic. The right ventricle is severely enlarged. LA is severely dilated >40 ml/m2 RA appears enlarged. Lumason used Aortic valve is trileaflet and is mildly thickened. There is mild aortic regurgitation. The mitral valve leaflets are moderately thickened. Moderate mitral annular calcification present. Severe mitral regurgitation is present. The peak and mean MV gradients are 26.17mmHg 5.46mmHg as measured by doppler. Moderate mitral stenosis. Moderate tricuspid regurgitation present. There is severe pulmonary hypertension. The right ventr icular systolic pressure, as measured by Doppler, is 70.97mmHg. Pulmonic valve appears structurally normal. The aortic root size is normal. IVC Not well visulized. There is a trivial pericardial effusion present. Large Pleural Effusion. CONCLUSIONS -------- 1. Paced rhythm. 2. This was a technically difficult study with suboptimal views. 3. The left ventricular size is normal. 4. There is mild concentric left ventricular hypertrophy. 5. Overall left ventricular systolic function is moderate-severely impaired with, an EF between 30 - 35 %. 6. There is paradoxical/dysynergic septal motion consistent with right ventricular volume overload an d/or elevated right ventricular end-diastolic pressure. 7. Basal inferoseptal LV wall motion is hypokinetic. 8. Mid inferoseptal LV wall motion is hypokinetic. 9. Mid anteroseptal LV wall motion is hypokinetic. 10. Apical septum LV wall motion is hypokinetic. 11. Septum is hypokinetic 12. Basal inferolateral appears hypokinetic. 13. The right ventricle is severely enlarged. 14. LA is severely dilated >40 ml/m2 15. RA appears enlarged. 16. Lumason used 17. Aortic valve is trileaflet and is mildly thickened. 18. There is mild aortic regurgitation. 19. The mitral valve leaflets are moderately thickened. 20. Moderate mitral annular calcification present. 21. Severe mitral regurgitation is present. 22. The peak and mean MV gradients are 26.17mmHg 5.46mmHg as measured by doppler. 23. Moderate mitral stenosis. 24. Moderate tricuspid regurgitation present. 25. There is severe pulmonary hypertension. 26. The right ventricular systolic pressure, as measured by Doppler, is 70.97mmHg. 27. Pulmonic valve appears structurally normal. 28. The aortic root size is normal. 29. IVC Not well visulized. 30. There is a trivial pericardial effusion present. 31. Large Pleural Effusion. COURTESY DRIVER: Rach Mai RDCS
--- NOTE | 2018-11-10 09:55 | P.PN ---
Subjective Progress Note Date: 11/10/18 This is an 83-year-old male patient of Dr. Majano. Patient presented to the ER with complaints of increased lower extremity and groin swelling. Patient reports this is been occurring for 2 weeks. About a week and a half ago patient presented to his PCP which further recommended patient to go to [facility]. At that time patient was discharged on Bactrim for possible cellulitis. Patient reports that the swelling has not improved. Patient presented back to Dr. Majano's office in which he expressed concerns for possible CHF. Patient reports he has been unable to lay flat for years and also gets very short of breath with ambulation. Patient is on home Lasix in which she has been taking. Patient does believe he has history of CHF and follows with cardiology services. Patient's additional medical history includes myocardial infarction, thyroid disease, permanent pacemaker in 2007, deafness and ex-smoker. Chest x-ray completed showing chronic apathy matter change in cardiomegaly with mild central vascular congestion and small to moderate left pleural effusion with associated left basal atelectasis and/or infiltrate. Cardiology services consulted. 2-D echo has been ordered. Patient started on IV Lasix. Patient also started on IV antibiotics for possible lower extremity cellulitis. At this time patient denies chest pain. Patient does complain of some shortness of breath with lying flat inactivity. Patient denies nausea vomiting or diarrhea. Patient denies any urinary burning or frequency. On 11/10/2018 patient is currently working with physical therapy ambulating through halls. Patient underwent paracentesis yesterday 1450 mL off. Patient reports that he feels much improved. Patient remains on IV Lasix at this time. Blood culture has been ordered to assess for lower Imtiaz cellulitis. Patient remains on Kefzol. At this time patient denies chest pain or shortness breath. Patient denies nausea vomiting or diarrhea. Patient denies any urinary burning or frequency Objective - Vital Signs Vital signs: Vital Signs Temp 97.1 F L 11/10/18 08:30 Pulse 61 11/10/18 08:30 Resp 18 11/10/18 08:30 BP 109/55 11/10/18 08:30 Pulse Ox 91 L 11/10/18 08:30 Intake & Output 11/09/18 11/10/18 11/10/18 18:59 06:59 18:59 Intake Total 240 250 Output Total 1200 500 Balance -960 -250 Weight 86.6 kg 80.1 kg Intake: Intake, IV Titration 50 Amount ceFAZolin 1,000 mg In 50 Dextrose/Water 1 50ml.bag @ 100 mls/hr IVPB Q8HR TRACY Rx#:[id number] Oral 240 200 Output: Urine 1200 500 Other: # Voids 3 1 - Exam Head normocephalic Neck supple Lungs diminished bilaterally Heart regular rate and rhythm S1-S2, no rub or gallop Abdomen is soft nontender nondistended positive bowel sounds no hepatosplenomegaly Extremities generalized lower extremity and scrotal edema. Erythema noted to bilateral lower extremities Neuro alert and orientated to 3 - Labs CBC & Chem 7: 11/10/18 06:07 11/10/18 06:07 Labs: Abnormal Lab Results - Last 24 Hours (Table) 11/10/18 11/10/18 Range/Units 06:07 06:07 RBC 3.72 L (4.30-5.90) m/uL Hgb 11.4 L (13.0-17.5) gm/dL Hct 35.7 L (39.0-53.0) % RDW 15.9 H (11.5-15.5) % Plt Count 109 L (150-450) k/uL Lymphocytes # 0.6 L (1.0-4.8) k/uL Carbon Dioxide 34 H (22-30) mmol/L BUN 26 H (9-20) mg/dL Creatinine 1.73 H (0.66-1.25) mg/dL Total Protein 6.1 L (6.3-8.2) g/dL Albumin 3.3 L (3.5-5.0) g/dL Microbiology - Last 24 Hours (Table) 11/09/18 15:50 Gram Stain - Preliminary Pleural Fluid Body Fluid Culture - Preliminary 11/09/18 15:50 Acid Fast Bacilli Culture - Preliminary Pleural Fluid 11/09/18 15:50 Fungal Culture - Preliminary Pleural Fluid Assessment and Plan Assessment: 1. Bilateral lower extremity edema with shortness of breath likely due to acute on chronic systolic heart failure exacerbation. Patient started on IV Lasix per cardiology services. Patient had a recent 2-D echo performed in cardiology office showing an EF of 45% with severe mitral regurg and mild to moderate aor tic regurg. Repeat 2-D echo has been ordered for this admission. 2. Left pleural effusion. Patient underwent thoracocentesis with Dr. Valencia 11/09/2018. 1450 mL fluid removed. Cytology sent 3. lower extremity cellulitis. Patient started on Kefzol IV antibiotics. Blood culture has been ordered 4. Acute on chronic renal insufficiency. Creatinine 1.73. We'll continue to monitor closely 5. Hypothyroidism. TSH level elevated at 9.470. Will increase Synthroid dose to 50 mics. 6. Permanent pacemaker implantation in 2007 7. Essential hypertension 8. Previous history of myocardial infarction 9. Deafness 10. Nicotine dependence. Patient educated greater than 3 minutes on smoking cessation. 11. Severe mitral valve and aortic valve disease contributing to patient's congestive heart failure. Cardiology services are following GI prophylaxis Protonix. DVT prophylaxis Lovenox I performed an examination of the patient and discussed their management with the Nurse Practitioner. I have reviewed the Nurse Practitioner's notes and agree with the documented findings and plan of care
--- NOTE | 2018-11-10 11:00 | XR ---
EXAMINATION TYPE: XR chest 2V DATE OF EXAM: 11/10/2018 COMPARISON: Prior chest x-ray 11/09/2018 HISTORY: Follow-up congestive heart failure TECHNIQUE: Frontal and lateral views of the chest are obtained. FINDINGS: Prominent lung volumes are again noted. Retrocardiac increased density is present, the lef t hemidiaphragm is obscured. Pacemaker is stable. Central vascularity and interstitium are increased. No evident pneumothorax. IMPRESSION: Correlate for pulmonary venous hypertension and interstitial edema, there may be left lo wer lobe atelectasis versus edema and associated effusion, correlate to exclude pneumonia. Follow-up is recommended.
[2018-11-10] MEDS: hydrALAZINE HCL 25 MG TAB PO SCH ×2 (13:45→20:29)
--- NOTE | 2018-11-10 14:51 | P.PN ---
Subjective This is a pleasant 83-year-old male falls Dr. Tate in the office past medical history significant for permanent pacemaker implantation and hypertension. He is being treated with IV lasix for cardiac congestive heart failure. Echo obtained on this admission reveals impaired left ventricular systolic function with ejection fraction 30-35%, mitral regurgitation, mitral stenosis and pulmonary hypertension. He underwent paracentesis of left pleural effusion yesterday with 1450 cc of fluid removed. Repeat chest xray performed today reveals pulmonary venous hypertension and interstitial edema. Laboratory data reviewed, WBC 5.3, hemoglobin 11.4, platelets 109, sodium 139, potassium 4.1, creatinine 1.73. His weight is down 5 kg from admission. Currently maintained on atenolol 25 mg daily and lasix 40 mg IV BID. He is seen and examined sitting up in the chair eating lunch in no acute distress. He denies shortness of breath, chest pain, dizziness or palpitations. GENERAL: Well-appearing, well-nourished and in no acute distress. NECK: Supple without JVD or thyromegaly. LUNGS: Breath sounds clear to auscultation bilaterally. Respiration equal and unlabored. No wheezes, rales or rhonchi. HEART: Regular rate and rhythm with systolic ejection murmur at the left sternal border, no rubs or gallops. S1 and S2 heard. EXTREMITIES: Normal range of motion, 1+ bilateral lower extremity edema with chronic venous stasis and eryhtema. No clubbing or cyanosis. Peripheral pulses intact. ASSESSMENT Acute systolic heart failure, EF 30-35% Mitral regurgitation and stenosis, severe mean gradient 5 mmHg Pulmonary hypertension, RVSP 70 mmHg Hypertension Acute on chronic kidney disease History of permanent pacemaker implantation secondary to sick sinus syndrome History recently of non-sustained ventricular tachycardia PLAN Transition to PO lasix and add hydralazine 25 mg BID. Repeat kidney function in the morning and if there is some improvement we will consider adding Entresto. We will continue to follow. Nurse Practitioner note has been reviewed, I agree with a documented findings and plan of care. Patient was seen and examined. Objective - Vital Signs Vital signs: Vital Signs Temp 98 F 11/10/18 11:50 Pulse 60 11/10/18 11:50 Resp 17 11/10/18 11:50 BP 130/67 11/10/18 11:50 Pulse Ox 94 L 11/10/18 11:50 Intake & Output 11/09/18 11/10/18 11/10/18 18:59 06:59 18:59 Intake Total 240 250 100 Output Total 8233 036 2781 Balance -960 -250 -900 Weight 86.6 kg 80.1 kg Intake: Intake, IV Titration 50 100 Amount ceFAZolin 1,000 mg In 50 100 Dextrose/Water 1 50ml.bag @ 100 mls/hr IVPB Q8HR TRACY Rx#:[id number] Oral 240 200 Output: Urine 8786 713 6853 Other: # Voids 3 1 - Labs CBC & Chem 7: 11/10/18 06:07 11/10/18 06:07 Labs: Abnormal Lab Results - Last 24 Hours (Table) 11/10/18 11/10/18 Range/Units 06:07 06:07 RBC 3.72 L (4.30-5.90) m/uL Hgb 11.4 L (13.0-17.5) gm/dL Hct 35.7 L (39.0-53.0) % RDW 15.9 H (11.5-15.5) % Plt Count 109 L (150-450) k/uL Lymphocytes # 0.6 L (1.0-4.8) k/uL Carbon Dioxide 34 H (22-30) mmol/L BUN 26 H (9-20) mg/dL Creatinine 1.73 H (0.66-1.25) mg/dL Total Protein 6.1 L (6.3-8.2) g/dL Albumin 3.3 L (3.5-5.0) g/dL Microbiology - Last 24 Hours (Table) 11/09/18 15:50 Gram Stain - Preliminary Pleural Fluid Body Fluid Culture - Preliminary 11/09/18 15:50 Acid Fast Bacilli Culture - Preliminary Pleural Fluid 11/09/18 15:50 Fungal Culture - Preliminary Pleural Fluid
--- NOTE | 2018-11-10 14:55 | P.PN ---
Subjective Progress Note Date: 11/10/18 Principal diagnosis: Acute congestive heart failure, with systolic dysfunction or valvular dysfunction, large left pleural effusion status post left-sided thoracentesis would removal of 1450 ML of fluid This is an 83-year-old white male with history of coronary artery disease, p revious SD, history of pacemaker implantation, patient normally sees Dr. Aceves on outpatient basis for his cardiac condition. Patient is also known to have history of hypertension, hypothyroidism, and he normally follows up with Dr. Majano as his primary care physician. Over the last couple of weeks, patient has been experiencing swelling in lower extremities, extending all the way up to the groin area. Patient was seen at [facility], and he was admitted about a few days ago, treated for cellulitis of the lower extremities with Bactrim, and he continued to have increased swelling in lower extremities. He saw his primary care physician who recommended that he goes to the emergency room. Patient was seen and he was found to have congestive heart failure biventricular in nature, and he was also found to have a good sized left-sided pleural effusion hence I was asked to see the patient on consultation. Patient was already seen by cardiology, and recommended Lasix at 40 mg IV push every 12 hours, I evaluated the patient, reviewed his chest x-ray and ultrasound of the chest, and proceeded to left sided thoracentesis. I was able to drain 1450 mL of fluid from the left pleural space. Chest x-ray showed complete resolution of the pleural effusion after the procedure. Looking back at his previous workup, patient is known to have history of LV dysfunction and ejection fraction is in the range of 45% he has history of severe mitral regurgitation and moderate aortic regurgitation. His BNP level on this admission was 3590. Patient had mostly shortness of breath and swelling in the legs, he had no chest pain, no nausea no vomiting no abdominal pain. No headaches no blurred vision no dizziness. No melena, no hematemesis, no dysuria and no frequency no urgency. Has been complaining however of swelling of lower extremities and some redness in both lower extremities for quite some time. On 11/10/2018 patient seen in follow-up on selective care unit, he is awake and alert, sitting up in the chair, in no acute distress, he still has some residual shortness of breath, no acute distress, room air pulse ox is 94%, no complaints of chest pain, patient is status post left-sided thoracentesis would removal of 1450 ML of pleural fluid, cultures are pending, pleural fluid analysis revealed transudative fluid, and cytology is pending at this time, patient continues to diurese, today's chest x-ray was reviewed by Dr. Post and shows pulmonary venous hypertension and interstitial edema, left lower lobe atelectasis and associated small pleural effusion. He is on IV Lasix of 40 mg every 12 hours, today's labs have been reviewed, and there has been slight worsening of patient's renal profile, with BUN of 26 and creatinine of 1.73. Teen negative fluid balance, and his lung status is improving, still has some residual lower extremity edema. Objective - Vital Signs Vital signs: Vital Signs Temp 98 F 11/10/18 11:50 Pulse 60 11/10/18 11:50 Resp 17 11/10/18 11:50 BP 130/67 11/10/18 11:50 Pulse Ox 94 L 11/10/18 11:50 Intake & Output 11/09/18 11/10/18 11/10/18 18:59 06:59 18:59 Intake Total 240 250 100 Output Total 8393 662 5072 Balance -960 -250 -900 Weight 86.6 kg 80.1 kg Intake: Intake, IV Titration 50 100 Amount ceFAZolin 1,000 mg In 50 100 Dextrose/Water 1 50ml.bag @ 100 mls/hr IVPB Q8HR [facility] Rx#:[id number] Oral 240 200 Output: Urine 5104 599 8158 Other: # Voids 3 1 - Exam GENERAL EXAM: Alert, pleasant, 83-year-old white male comfortable in no apparent distress. HEAD: Normocephalic/atraumatic. EYES: Normal reaction of pupils, equal size. Conjunctiva pink, sclera white. NOSE: Clear with pink turbinates. THROAT: No erythema or exudates. NECK: No masses, no JVD, no thyroid enlargement, no adenopathy. CHEST: No chest wall deformity. Symmetrical expansion. LUNGS: Equal air entry with mesh breath sounds, and bibasilar crackles CVS: Regular rate and rhythm, normal S1 and S2, no gallops, no murmurs, no rubs ABDOMEN: Soft, nontender. No hepatosplenomegaly, normal bowel sounds, no guarding or rigidity. EXTREMITIES: No clubbing, lower extremity edema, no cyanosis, 2+ pulses and upper and lower extremities. MUSCULOSKELETAL: Muscle strength and tone normal. SPINE: No scoliosis or deformity SKIN: No rashes CENTRAL NERVOUS SYSTEM: Alert and oriented -3. No focal deficits, tone is normal in all 4 extremities. PSYCHIATRIC: Alert and oriented -3. Appropriate affect. Intact judgment and insight. - Labs CBC & Chem 7: 11/10/18 06:07 11/10/18 06:07 Labs: Abnormal Lab Results - Last 24 Hours (Table) 11/10/18 11/10/18 Range/Units 06:07 06:07 RBC 3.72 L (4.30-5.90) m/uL Hgb 11.4 L (13.0-17.5) gm/dL Hct 35.7 L (39.0-53.0) % RDW 15.9 H (11.5-15.5) % Plt Count 109 L (150-450) k/uL Lymphocytes # 0.6 L (1.0-4.8) k/uL Carbon Dioxide 34 H (22-30) mmol/L BUN 26 H (9-20) mg/dL Creatinine 1.73 H (0.66-1.25) mg/dL Total Protein 6.1 L (6.3-8.2) g/dL Albumin 3.3 L (3.5-5.0) g/dL Microbiology - Last 24 Hours (Table) 11/09/18 15:50 Gram Stain - Preliminary Pleural Fluid Body Fluid Culture - Preliminary 11/09/18 15:50 Acid Fast Bacilli Culture - Preliminary Pleural Fluid 11/09/18 15:50 Fungal Culture - Preliminary Pleural Fluid Assessment and Plan Plan: Assessment: 1 acute congestive heart failure, mostly systolic in nature, ejection fraction is 45% and is also related to significant valvular heart disease with severe mitral regurgitation and moderate aortic regurgitation. 2 moderate sized left pleural effusion, I will arrange for thoracentesis, this was done and I was able to drain 1450 mL of fluid. 3 suspect acute on chronic renal failure stage III, likely cardiorenal in nature. 4 severe mitral valve and aortic valve disease contributing most likely significantly to his congestive heart failure. 5 benign essential hypertension 6 history of hypothyroidism 7 nicotine dependence syndrome patient was counseled regarding smoking cessation. 8 prior pacemaker implantation for previous history of cardiac arrhythmia. 9 Suspect cellulitis of both lower extremities. Plan: Chest x-ray has been reviewed by Dr. Post, and still shows interstitial prominence, but improvement in the appearance of left total effusion, enlarged patient status post left-sided thoracentesis, and pleural fluid analysis showed transudative fluid consistent with the diagnosis of congestive heart failure. Cytology is pending, pleural fluid cultures are pending, no fever or chills, no complaints of chest pain, no worsening dyspnea, with continue IV diuresis at this time she still has lower extremity edema, and some congestion and interstitial prominence on the chest x-ray. I performed a history & physical examination of the patient and discussed their management with my nurse practitioner, Miley Day. I reviewed the nurse practitioner's note and agree with the documented findings and plan of care. Lung sounds are positive for diminished breath sounds and bilateral crackles The findings and the impression was discussed with the patient. I attest to the documentation by the nurse practitioner. Time with Patient: Less than 30
[2018-11-10] MEDS: FUROSEMIDE 40 MG TAB PO SCH (15:13)
[2018-11-10] MEDS ORDERED: FUROSEMIDE 40 MG TAB PO SCH (16:00)
[2018-11-11] MEDS: PANTOPRAZOLE 40 MG TABLET PO SCH (06:47)
[2018-11-11] MEDS: LEVOTHYROXINE 50 MCG TAB PO SCH (06:47)
[2018-11-11 08:00] LABS: Albumin 3.5 g/dL (3.5-5.0); Calcium 9.1 mg/dL (8.4-10.2); Potassium 4.1 mmol/L (3.5-5.1); Total Bilirubin 1.2 mg/dL (0.2-1.3); Total Protein 6.5 g/dL (6.3-8.2)
[2018-11-11] MEDS: ATENOLOL 25 MG TAB PO SCH (09:48)
[2018-11-11] MEDS: hydrALAZINE HCL 25 MG TAB PO SCH (09:48)
[2018-11-11] MEDS: ENOXAPARIN 40 MG/0.4 ML SYRINGE SQ SCH (09:48)
[2018-11-11] MEDS: FERROUS SULFATE 325 MG TAB PO SCH (09:48)
[2018-11-11] MEDS: FUROSEMIDE 40 MG TAB PO SCH (09:48)
[2018-11-11] MEDS: ceFAZolin 1,000 MG in DEXTROSE/WATER 1 50ML.BAG IVPB SCH ×2 (11:36→17:54)
[2018-11-11 11:37] LABS: Anisocytosis Slight; Basophils % (A) 1 %; Eosinophils # (A) 0.1 k/uL (0-0.7); Eosinophils % (A) 2 %; HCT 37.9 % (39.0-53.0); HGB 12.2 gm/dL (13.0-17.5); Lymphocytes # (A) 0.7 k/uL (1.0-4.8); Lymphocytes % (A) 14 %; MCH 30.8 pg (25.0-35.0); MCHC 32.3 g/dL (31.0-37.0); MCV 95.4 fL (80.0-100.0); Mean Platelet Volume 7.4; Monocytes # (A) 0.5 k/uL (0-1.0); Monocytes % (A) 10 %; Neutrophils # (A) 3.9 k/uL (1.3-7.7); Neutrophils % (A) 73 %; Platelet Count 114 k/uL (150-450); RBC 3.97 m/uL (4.30-5.90); RDW 16.1 % (11.5-15.5); WBC 5.4 k/uL (3.8-10.6)
[2018-11-11] MEDS: SACUBITRIL/VALSARTAN 24 MG-26 MG TABLET PO SCH ×2 (13:06→21:05)
--- NOTE | 2018-11-11 13:19 | P.PN ---
Subjective Progress Note Date: 11/11/18 This is an 83-year-old male patient of Dr. Majano. Patient presented to the ER with complaints of increased lower extremity and groin swelling. Patient reports this is been occurring for 2 weeks. About a week and a half ago patient presented to his PCP which further recommended patient to go to [facility]. At that time patient was discharged on Bactrim for possible cellulitis. Patient reports that the swelling has not improved. Patient presented back to Dr. Majano's office in which he expressed concerns for possible CHF. Patient reports he has been unable to lay flat for years and also gets very short of breath with ambulation. Patient is on home Lasix in which she has been taking. Patient does believe he has history of CHF and follows with cardiology services. Patient's additional medical history includes myocardial infarction, thyroid disease, permanent pacemaker in 2007, deafness and ex-smoker. Chest x-ray completed showing chronic apathy matter change in cardiomegaly with mild central vascular congestion and small to moderate left pleural effusion with associated left basal atelectasis and/or infiltrate. Cardiology services consulted. 2-D echo has been ordered. Patient started on IV Lasix. Patient also started on IV antibiotics for possible lower extremity cellulitis. At this time patient denies chest pain. Patient does complain of some shortness of breath with lying flat inactivity. Patient denies nausea vomiting or diarrhea. Patient denies any urinary burning or frequency. On 11/10/2018 patient is currently working with physical therapy ambulating through halls. Patient underwent paracentesis yesterday 1450 mL off. Patient reports that he feels much improved. Patient remains on IV Lasix at this time. Blood culture has been ordered to assess for lower Imtiaz cellulitis. Patient remains on Kefzol. At this time patient denies chest pain or shortness breath. Patient denies nausea vomiting or diarrhea. Patient denies any urinary burning or frequency On 11/11/2018 patient is alert and oriented 3 in no apparent distress he denies any Dori at this time there is no fever or chills no headache or dizziness no chest pain no shortness of breath no cough no nausea or vomiting no abdominal pain no diarrhea and no urinary symptoms echocardiogram was done and revealed significant impairment in the left ventricular function with ejection fraction of 30-35% he was started on Entresto by cardiology Objective - Vital Signs Vital signs: Vital Signs Temp 97.9 F 11/11/18 08:00 Pulse 60 11/11/18 08:00 Resp 18 11/11/18 08:00 BP 108/58 11/11/18 08:00 Pulse Ox 87 L 11/11/18 08:00 Intake & Output 11/10/18 11/11/18 11/11/18 18:59 06:59 18:59 Intake Total 410 60 Output Total 1000 300 645 Balance -590 -300 -585 Weight 79.4 kg Intake: Intake, IV Titration 300 Amount ceFAZolin 1,000 mg In 300 Dextrose/Water 1 50ml.bag @ 100 mls/hr IVPB Q8HR [facility] Rx#:[id number] Oral 110 60 Output: Urine 1000 300 645 Other: # Voids 1 - Exam Head normocephalic and atraumatic Neck supple no JVD no goiter Lungs diminished bilaterally a few scattered rhonchi no wheezing Heart regular rate and rhythm S1-S2, no rub or gallop Abdomen is soft nontender nondistended positive bowel sounds no hepatosplenomegaly Extremities generalized lower extremity and scrotal edema. Erythema noted to bilateral lower extremities Neuro alert and orientated to 3 - Labs CBC & Chem 7: 11/11/18 07:01 11/11/18 07:01 Labs: Abnormal Lab Results - Last 24 Hours (Table) 11/11/18 11/11/18 Range/Units 07:01 07:01 RBC 3.97 L (4.30-5.90) m/uL Hgb 12.2 L (13.0-17.5) gm/dL Hct 37.9 L (39.0-53.0) % RDW 16.1 H (11.5-15.5) % Plt Count 114 L (150-450) k/uL Lymphocytes # 0.7 L (1.0-4.8) k/uL BUN 32 H (9-20) mg/dL Creatinine 1.44 H (0.66-1.25) mg/dL Glucose 105 H (74-99) mg/dL Microbiology - Last 24 Hours (Table) 11/09/18 15:50 Acid Fast Bacilli Smear - Final Pleural Fluid Acid Fast Bacilli Culture - Preliminary 11/09/18 15:50 Gram Stain - Preliminary Pleural Fluid Body Fluid Culture - Preliminary 11/09/18 14:32 Blood Culture - Preliminary Blood No Growth after 24 hours Assessment and Plan Plan: 1. Bilateral lower extremity edema with shortness of breath likely due to acute on chronic systolic heart failure exacerbation. Patient started on IV Lasix per cardiology services. Patient had a recent 2-D echo performed in cardiology office showing an EF of 45% with severe mitral regurg and mild to moderate aortic regurg. Repeat 2-D echo has been ordered for this admission and it showed significantly depressed ejection fraction to 30-35% at this time patient was started on Entresto. 2. Left pleural effusion. Patient underwent thoracocentesis with Dr. Valencia 11/09/2018. 1450 mL fluid removed. Cytology sent 3. lower extremity cellulitis. Patient started on Kefzol IV antibiotics. Blood culture has been ordered 4. Acute on chronic renal insufficiency. Creatinine 1.73. We'll continue to monitor closely 5. Hypothyroidism. TSH level elevated at 9.470. Will increase Synthroid dose to 50 mics. 6. Permanent pacemaker implantation in 2007 7. Essential hypertension 8. Previous history of myocardial infarction 9. Deafness 10. Nicotine dependence. Patient educated greater than 3 minutes on smoking cessation. 11. Severe mitral valve and aortic valve disease contributing to patient's congestive heart failure. Cardiology services are following GI prophylaxis Protonix. DVT prophylaxis Lovenox
--- NOTE | 2018-11-11 13:36 | P.PN ---
Subjective Progress Note Date: 11/11/18 Principal diagnosis: acute on chronic systolic congestive heart failure. This is an 83-year-old white male with history of coronary artery disease, previous PR, history of pacemaker implantation, patient normally sees Dr. Aceves on outpatient basis for his cardiac condition. Patient is also known to have history of hypertension, hypothyroidism, and he normally follows up with Dr. Majano as his primary care physician. Over the last couple of weeks, patient has been experiencing swelling in lower extremities, extending all the way up to the groin area. Patient was seen at [facility], and he was admitted about a few days ago, treated for cellulitis of the lower extremities with Bactrim, and he continued to have increased swelling in lower extremities. He saw his primary care physician who recommended that he goes to the emergency room. Patient was seen and he was found to have congestive heart failure biventricular in nature, and he was also found to have a good sized left-sided pleural effusion hence I was asked to see the patient on consultation. Patient was already seen by cardiology, and recommended Lasix at 40 mg IV push every 12 hours, I evaluated the patient, reviewed his chest x-ray and ultrasound of the chest, and proceeded to left sided thoracentesis. I was able to drain 1450 mL of fluid from the left pleural space. Chest x-ray showed complete resolution of the pleural effusion after the procedure. Looking back at his previous workup, patient is known to have history of LV dysfunction and ejection fraction is in the range of 45% he has history of severe mitral regurgitation and moderate aortic regurgitation. His BNP level on this admission was 3590. Patient had mostly shortness of breath and swelling in the legs, he had no chest pain, no nausea no vomiting no abdominal pain. No headaches no blurred vision no dizziness. No melena, no hematemesis, no dysuria and no frequency no urgency. Has been complaining however of swelling of lower extremities and some redness in both lower extremities for quite some time. On 11/10/2018 patient seen in follow-up on selective care unit, he is awake and alert, sitting up in the chair, in no acute distress, he still has some residual shortness of breath, no acute distress, room air pulse ox is 94%, no complaints of chest pain, patient is status post left-sided thoracentesis would removal of 1450 ML of pleural fluid, cultures are pending, pleural fluid analysis revealed transudative fluid, and cytology is pending at this time, patient continues to diurese, today's chest x-ray was reviewed by Dr. Post and shows pulmonary venous hypertension and interstitial edema, left lower lobe atelectasis and associated small pleural effusion. He is on IV Lasix of 40 mg every 12 hours, today's labs have been reviewed, and there has been slight worsening of patient's renal profile, with BUN of 26 and creatinine of 1.73. Teen negative fluid balance, and his lung status is improving, still has some residual lower extremity edema. Reevaluated today on 11/11/2018, patient seems to be quite comfortable, in no distress, denies any shortness of breath, no cough, no wheezing. Remains on diuretics for his congestive heart failure, and his pulse oximetry is showing 94% on room air.the pleural effusion which I drained is clearly transudative in nature low protein, low LDH, and it is related to congestive heart failure unless for otherwise.the cytology on the fluid is expected to be negative. However the report is pending.all his labs today were reviewed, BUN is 32 creati nine is 1.44 and his electrolytes are normal. Patient is feeling much better compared to how he felt upon presentation. However his last chest x-ray continued to show some interstitial edema. Objective - Vital Signs Vital signs: Vital Signs Temp 97.6 F 11/11/18 12:00 Pulse 58 L 11/11/18 12:00 Resp 20 11/11/18 12:00 BP 122/66 11/11/18 12:00 Pulse Ox 100 11/11/18 12:00 Intake & Output 11/10/18 11/11/18 11/11/18 18:59 06:59 18:59 Intake Total 410 60 Output Total 1000 300 645 Balance -590 -300 -585 Weight 79.4 kg Intake: Intake, IV Titration 300 Amount ceFAZolin 1,000 mg In 300 Dextrose/Water 1 50ml.bag @ 100 mls/hr IVPB Q8HR [facility] Rx#:[id number] Oral 110 60 Output: Urine 1000 300 645 Other: # Voids 1 - Exam Physical Exam: Revealed an 83-year-old white male in no distress. Head: Atraumatic, normocephalic. HEENT:[Neck is supple.] [No neck masses.] [No thyromegaly.] [ Positive JVD.] PERRLA, EOMI, there is evidence of drooping of the left upper eyelid , Cardiac Exam: [Normal S1 and S2, no S3 gallop, 2/6 systolic murmur thought the precordium. pulmonary: Diminished breath sounds and crackles at the bases, no rhonchi no wheezes. Abdomen: [Soft, nontender, no megaly, no rebound, no guarding, normal bowel sounds.] Extremities: [No clubbing, 2+ bipedal edema, extending from the ankles all the way up to the groin. Venous stasis changes noted, and erythema noted bila terally. no cyanosis.] Diminished distal pulses bilaterally. 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 Right hand seems to be quite deformed. Neurological Exam: [No focal neurologic deficit. Alert and oriented 3. Psychiatric: Normal mood, affect and mental status examination. Lymphatics: No lymphadenopathy. Skin: Evidence of erythema of lower extremities noted, both lower extremities are warm to touch.] - Labs CBC & Chem 7: 11/11/18 07:01 11/11/18 07:01 Labs: Abnormal Lab Results - Last 24 Hours (Table) 11/11/18 11/11/18 Range/Units 07:01 07:01 RBC 3.97 L (4.30-5.90) m/uL Hgb 12.2 L (13.0-17.5) gm/dL Hct 37.9 L (39.0-53.0) % RDW 16.1 H (11.5-15.5) % Plt Count 114 L (150-450) k/uL Lymphocytes # 0.7 L (1.0-4.8) k/uL BUN 32 H (9-20) mg/dL Creatinine 1.44 H (0.66-1.25) mg/dL Glucose 105 H (74-99) mg/dL Microbiology - Last 24 Hours (Table) 11/09/18 15:50 Acid Fast Bacilli Smear - Final Pleural Fluid Acid Fast Bacilli Culture - Preliminary 11/09/18 15:50 Gram Stain - Preliminary Pleural Fluid Body Fluid Culture - Preliminary 11/09/18 14:32 Blood Culture - Preliminary Blood No Growth after 24 hours Assessment and Plan Assessment: Impression: 1 acute congestive heart failure, mostly systolic in nature, ejection fraction is 45% and is also related to significant valvular heart disease with severe mitral regurgitation and moderate aortic regurgitation. 2 moderate sized left pleural effusion, status post thoracentesis, fluid was transudate of in nature, 1450 mL of fluid drained from the pleural space. 3 suspect acute on chronic renal failure stage III, likely cardiorenal in nature. 4 severe mitral valve and aortic valve disease contributing most likely significantly to his congestive heart failure. 5 benign essential hypertension 6 history of hypothyroidism 7 nicotine dependence syndrome patient was counseled regarding smoking cessation. 8 prior pacemaker implantation for previous history of cardiac arrhythmia. 9 Suspect cellulitis of both lower extremities. Recommendation: continue Lasix, hydralazine,Tenormin, cefazolin, Lovenox, Synthroid, entresto, Protonix, iron supplement,repeat chest x-ray in the next 24 hours, and hopefully plan to discharge the patient home in the next 24-48 hours. We'll continue to follow. Time with Patient: Less than 30
[2018-11-11] MEDS: FUROSEMIDE 20 MG TAB PO SCH (17:24)
--- NOTE | 2018-11-11 18:26 | P.PN ---
Subjective Progress Note Date: 11/11/18 This 83-year-old gentleman was admitted with CHF. He is known to have cardiomyopathy with an ejection fraction 35-40%. Patient also has a mitral regurgitation. Patient had a pleural effusion which was tapped yesterday. He seemed to be feeling better. He is lying in bed flat without any difficulty. No edema noted. Blood pressure is running about 120/60. We'll going to start him on Entresto. Rest of the medication be continued. Patient is on by mouth diuretics. His hemoglobin is 12.2. His creatinine is improved to 1.44. Potassium is 4.1. We will follow his electrolytes closely Objective - Vital Signs Vital signs: Vital Signs Temp 97.6 F 11/11/18 12:00 Pulse 58 L 11/11/18 12:00 Resp 20 11/11/18 12:00 BP 122/66 11/11/18 12:00 Pulse Ox 100 11/11/18 12:00 Intake & Output 11/10/18 11/11/18 11/11/18 18:59 06:59 18:59 Intake Total 410 60 Output Total 1000 300 645 Balance -590 -300 -585 Weight 79.4 kg Intake: Intake, IV Titration 300 Amount ceFAZolin 1,000 mg In 300 Dextrose/Water 1 50ml.bag @ 100 mls/hr IVPB Q8HR [facility] Rx#:[id number] Oral 110 60 Output: Urine 1000 300 645 Other: # Voids 1 - Exam GENERAL EXAM: Patient is alert and oriented and doesn't appear to be in any acute distress HEENT: Normocephalic. Normal reaction of pupils, equal size, normal range of extraocular motion. No erythema or exudates in the throat. NECK: No masses, no nuchal rigidity. Increased JVD CHEST: No chest wall deformity. LUNGS: Equal air entry with no crackles or wheeze. HEART: S1 and S2 normal with no audible mumurs or gallops. Regular rhythm, femorals equal on both sides.. ABDOMEN: No hepatosplenomegaly, normal bowel sounds, no guarding or rigidity. SKIN: No rashes CENTRAL NERVOUS SYSTEM: No focal deficits. EXTREMITIES: No cyanosis, clubbing or edema. - Labs CBC & Chem 7: 11/11/18 07:01 11/11/18 07:01 Labs: Abnormal Lab Results - Last 24 Hours (Table) 11/11/18 11/11/18 Range/Units 07:01 07:01 RBC 3.97 L (4.30-5.90) m/uL Hgb 12.2 L (13.0-17.5) gm/dL Hct 37.9 L (39.0-53.0) % RDW 16.1 H (11.5-15.5) % Plt Count 114 L (150-450) k/uL Lymphocytes # 0.7 L (1.0-4.8) k/uL BUN 32 H (9-20) mg/dL Creatinine 1.44 H (0.66-1.25) mg/dL Glucose 105 H (74-99) mg/dL Microbiology - Last 24 Hours (Table) 11/09/18 14:32 Blood Culture - Preliminary Blood No Growth after 48 hours 11/09/18 15:50 Acid Fast Bacilli Smear - Final Pleural Fluid Acid Fast Bacilli Culture - Preliminary 11/09/18 15:50 Gram Stain - Preliminary Pleural Fluid Body Fluid Culture - Preliminary Assessment and Plan (1) Acute on chronic systolic (congestive) heart failure Current Visit: Yes Status: Acute Code(s): I50.23 - ACUTE ON CHRONIC SYSTOLIC (CONGESTIVE) HEART FAILURE SNOMED Code(s): 841535603 (2) Cardiomyopathy Current Visit: Yes Status: Acute Code(s): I42.9 - CARDIOMYOPATHY, UNSPECIFIED SNOMED Code(s): 44367039 (3) Pleural effusion Current Visit: Yes Status: Acute Code(s): J90 - PLEURAL EFFUSION, NOT ELSEWHERE CLASSIFIED SNOMED Code(s): 99963751 Plan: Continue current medical therapy. Add entresto.
[2018-11-12] MEDS: ceFAZolin 1,000 MG in DEXTROSE/WATER 1 50ML.BAG IVPB SCH ×3 (00:24→16:34)
[2018-11-12] MEDS: PANTOPRAZOLE 40 MG TABLET PO SCH (06:40)
[2018-11-12] MEDS: LEVOTHYROXINE 50 MCG TAB PO SCH (06:40)
[2018-11-12 07:10] LABS: Basophils % (A) 1 %; Eosinophils # (A) 0.2 k/uL (0-0.7); Eosinophils % (A) 3 %; HCT 37.5 % (39.0-53.0); Lymphocytes # (A) 0.7 k/uL (1.0-4.8); Lymphocytes % (A) 12 %; MCH 30.3 pg (25.0-35.0); MCV 94.5 fL (80.0-100.0); Mean Platelet Volume 7.6; Monocytes # (A) 0.5 k/uL (0-1.0); Monocytes % (A) 8 %; Neutrophils # (A) 4.2 k/uL (1.3-7.7); Neutrophils % (A) 74 %; Platelet Count 111 k/uL (150-450); RBC 3.97 m/uL (4.30-5.90); RDW 15.7 % (11.5-15.5); WBC 5.7 k/uL (3.8-10.6)
[2018-11-12 07:22] LABS: Albumin 3.4 g/dL (3.5-5.0); Potassium 4.3 mmol/L (3.5-5.1); Total Bilirubin 1.2 mg/dL (0.2-1.3); Total Protein 6.3 g/dL (6.3-8.2)
[2018-11-12] MEDS: SACUBITRIL/VALSARTAN 24 MG-26 MG TABLET PO SCH ×2 (09:46→22:15)
[2018-11-12] MEDS: FUROSEMIDE 20 MG TAB PO SCH ×2 (09:46→16:34)
[2018-11-12] MEDS: FERROUS SULFATE 325 MG TAB PO SCH (09:46)
[2018-11-12] MEDS: ATENOLOL 25 MG TAB PO SCH (09:46)
[2018-11-12] MEDS: ENOXAPARIN 40 MG/0.4 ML SYRINGE SQ SCH (09:47)
--- NOTE | 2018-11-12 13:12 | P.PN ---
Subjective Progress Note Date: 11/12/18 This is an 83-year-old male patient of Dr. Majano. Patient presented to the ER with complaints of increased lower extremity and groin swelling. Patient reports this is been occurring for 2 weeks. About a week and a half ago patient presented to his PCP which further recommended patient to go to [facility]. At that time patient was discharged on Bactrim for possible cellulitis. Patient reports that the swelling has not improved. Patient presented back to Dr. Majano's office in which he expressed concerns for possible CHF. Patient reports he has been unable to lay flat for years and also gets very short of breath with ambulation. Patient is on home Lasix in which she has been taking. Patient does believe he has history of CHF and follows with cardiology services. Patient's additional medical history includes myocardial infarction, thyroid disease, permanent pacemaker in 2007, deafness and ex-smoker. Chest x-ray completed showing chronic apathy matter change in cardiomegaly with mild central vascular congestion and small to moderate left pleural effusion with associated left basal atelectasis and/or infiltrate. Cardiology services consulted. 2-D echo has been ordered. Patient started on IV Lasix. Patient also started on IV antibiotics for possible lower extremity cellulitis. At this time patient denies chest pain. Patient does complain of some shortness of breath with lying flat inactivity. Patient denies nausea vomiting or diarrhea. Patient denies any urinary burning or frequency. On 11/10/2018 patient is currently working with physical therapy ambulating through halls. Patient underwent paracentesis yesterday 1450 mL off. Patient reports that he feels much improved. Patient remains on IV Lasix at this time. Blood culture has been ordered to assess for lower Imtiaz cellulitis. Patient remains on Kefzol. At this time patient denies chest pain or shortness breath. Patient denies nausea vomiting or diarrhea. Patient denies any urinary burning or frequency On 11/11/2018 patient is alert and oriented 3 in no apparent distress he denies any Dori at this time there is no fever or chills no headache or dizziness no chest pain no shortness of breath no cough no nausea or vomiting no abdominal pain no diarrhea and no urinary symptoms echocardiogram was done and revealed significant impairment in the left ventricular function with ejection fraction of 30-35% he was started on Entresto by cardiology On 11/12/2018 patient was seen and examined the telemetry floor he is alert and oriented 3 in no apparent distress he is denying any complaints at this time there is no fever or chills no headache or dizziness no chest pain no shortness of breath no cough no nausea or vomiting no abdominal pain no diarrhea and no urinary symptoms Objective - Vital Signs Vital signs: Vital Signs Temp 98.8 F 11/12/18 12:00 Pulse 60 11/12/18 12:00 Resp 20 11/12/18 12:00 BP 103/54 11/12/18 12:00 Pulse Ox 91 L 11/12/18 12:00 Intake & Output 11/11/18 11/12/18 11/12/18 17:59 06:59 18:59 Intake Total 240 Output Total 600 Balance -360 Weight Intake: Oral 240 Output: Urine 600 - Exam Head normocephalic and atraumatic Neck supple no JVD no goiter Lungs diminished bilaterally a few scattered rhonchi no wheezing Heart regular rate and rhythm S1-S2, no rub or gallop Abdomen is soft nontender nondistended positive bowel sounds no hepatosplenomegaly Extremities generalized lower extremity and scrotal edema. Erythema noted to bilateral lower extremities Neuro alert and orientated to 3 - Labs CBC & Chem 7: 11/12/18 06:46 11/12/18 06:46 Labs: Abnormal Lab Results - Last 24 Hours (Table) 11/12/18 11/12/18 Range/Units 06:46 06:46 RBC 3.97 L (4.30-5.90) m/uL Hgb 12.0 L (13.0-17.5) gm/dL Hct 37.5 L (39.0-53.0) % RDW 15.7 H (11.5-15.5) % Plt Count 111 L (150-450) k/uL Lymphocytes # 0.7 L (1.0-4.8) k/uL Carbon Dioxide 34 H (22-30) mmol/L BUN 33 H (9-20) mg/dL Creatinine 1.50 H (0.66-1.25) mg/dL Glucose 101 H (74-99) mg/dL Albumin 3.4 L (3.5-5.0) g/dL Microbiology - Last 24 Hours (Table) 11/09/18 15:50 Gram Stain - Preliminary Pleural Fluid Body Fluid Culture - Preliminary 11/09/18 14:32 Blood Culture - Preliminary Blood No Growth after 48 hours Assessment and Plan Plan: 1. Bilateral lower extremity edema with shortness of breath likely due to acute on chronic systolic heart failure exacerbation. Patient started on IV Lasix per cardiology services. Patient had a recent 2-D echo performed in cardiology office showing an EF of 45% with severe mitral regurg and mild to moderate aortic regurg. Repeat 2-D echo has been ordered for this admission and it showed significantly depressed ejection fraction to 30-35% at this time patient was started on Entresto. 2. Left pleural effusion. Patient underwent thoracocentesis with Dr. Valencia 11/09/2018. 1450 mL fluid removed. Cytology sent 3. lower extremity cellulitis. Patient started on Kefzol IV antibiotics. Blood culture has been ordered 4. Acute on chronic renal insufficiency. Creatinine 1.73. We'll continue to monitor closely 5. Hypothyroidism. TSH level elevated at 9.470. Will increase Synthroid dose to 50 mics. 6. Permanent pacemaker implantation in 2007 7. Essential hypertension 8. Previous history of myocardial infarction 9. Deafness 10. Nicotine dependence. Patient educated greater than 3 minutes on smoking cessation. 11. Severe mitral valve and aortic valve disease contributing to patient's congestive heart failure. Cardiology services are following GI prophylaxis Protonix. DVT prophylaxis Lovenox
--- NOTE | 2018-11-12 13:58 | P.PN ---
Subjective This is a pleasant 83-year-old male falls Dr. Tate in the office past medical history significant for permanent pacemaker implantation with a dual- chamber [employer] device, chronic systolic heart failure, nonsustained ventricular tachycardia, rheumatic mitral stenosis with insufficiency and hypertension. He's been transitioned to oral diuretics. He is seen and examined sitting up in the chair with family at bedside. Per the patient's son he was told in the office by Dr. Tate that he needs to have a generator change on his pacemaker over the patient has declined in the past and is now agreeable to move forward with the procedure. Clinically he appears euvolemic with improvement in his fluid overload status. He denies symptoms of chest discomfort, shortness of breath, dizziness or palpitations. Currently maintained on atenolol 25 mg daily, Lasix 20 mg twice a day and Entresto mg twice a day. Blood pressure 103/54 heart rate 68 afebrile maintaining oxygen saturation on room air. He continues to maintain negative fluid balance and is down 8 kg since admission. Laboratory data reviewed, WBC 5.7, hemoglobin 12, platelets 111, sodium 140, potassium 4.3, creatinine 1.5. GENERAL: Well-appearing, well-nourished and in no acute distress. NECK: Supple without JVD or thyromegaly. LUNGS: Breath sounds clear to auscultation bilaterally. Respiration equal and unlabored. No wheezes, rales or rhonchi. HEART: Regular rate and rhythm with systolic ejection murmur at the left sternal border, no rubs or gallops. S1 and S2 heard. EXTREMITIES: Normal range of motion, 1+ bilateral lower extremity edema with chronic venous stasis and eryhtema. No clubbing or cyanosis. Peripheral pulses intact. ASSESSMENT Acute systolic heart failure, EF 30-35% Mitral regurgitation and stenosis, severe mean gradient 5 mmHg Pulmonary hypertension, RVSP 70 mmHg Hypertension Acute on chronic kidney disease History of permanent pacemaker implantation secondary to sick sinus syndrome History recently of non-sustained ventricular tachycardia PLAN The patient states he would like to proceed with a generator change which has been recommended frequently in the past by Dr. Tate. We will place him nothing by mouth after midnight tonight and tentatively plan this for tomorrow with Dr. Negro. Nurse Practitioner note has been reviewed, I agree with a documented findings and plan of care. Patient was seen and examined. Objective - Vital Signs Vital signs: Vital Signs Temp 98.8 F 11/12/18 12:00 Pulse 60 11/12/18 12:00 Resp 20 11/12/18 12:00 BP 103/54 11/12/18 12:00 Pulse Ox 91 L 11/12/18 12:00 Intake & Output 11/11/18 11/12/18 11/12/18 17:59 06:59 18:59 Intake Total 240 Output Total 600 Balance -360 Weight Intake: Oral 240 Output: Urine 600 - Labs CBC & Chem 7: 11/12/18 06:46 11/12/18 06:46 Labs: Abnormal Lab Results - Last 24 Hours (Table) 11/12/18 11/12/18 Range/Units 06:46 06:46 RBC 3.97 L (4.30-5.90) m/uL Hgb 12.0 L (13.0-17.5) gm/dL Hct 37.5 L (39.0-53.0) % RDW 15.7 H (11.5-15.5) % Plt Count 111 L (150-450) k/uL Lymphocytes # 0.7 L (1.0-4.8) k/uL Carbon Dioxide 34 H (22-30) mmol/L BUN 33 H (9-20) mg/dL Creatinine 1.50 H (0.66-1.25) mg/dL Glucose 101 H (74-99) mg/dL Albumin 3.4 L (3.5-5.0) g/dL Microbiology - Last 24 Hours (Table) 11/09/18 15:50 Gram Stain - Preliminary Pleural Fluid Body Fluid Culture - Preliminary 11/09/18 14:32 Blood Culture - Preliminary Blood No Growth after 48 hours
[2018-11-13] MEDS: ceFAZolin 1,000 MG in DEXTROSE/WATER 1 50ML.BAG IVPB SCH ×4 (00:22→23:50)
[2018-11-13 06:30] LABS: Anisocytosis Slight; Basophils % (A) 1 %; Eosinophils # (A) 0.2 k/uL (0-0.7); Eosinophils % (A) 3 %; HCT 37.2 % (39.0-53.0); HGB 11.8 gm/dL (13.0-17.5); Lymphocytes # (A) 0.7 k/uL (1.0-4.8); Lymphocytes % (A) 13 %; MCH 30.4 pg (25.0-35.0); MCHC 31.8 g/dL (31.0-37.0); MCV 95.5 fL (80.0-100.0); Mean Platelet Volume 7.6; Monocytes # (A) 0.6 k/uL (0-1.0); Monocytes % (A) 10 %; Neutrophils % (A) 71 %; Platelet Count 117 k/uL (150-450); RBC 3.89 m/uL (4.30-5.90); WBC 5.6 k/uL (3.8-10.6)
[2018-11-13] MEDS: PANTOPRAZOLE 40 MG TABLET PO SCH (06:30)
[2018-11-13] MEDS: LEVOTHYROXINE 50 MCG TAB PO SCH (06:30)
[2018-11-13 06:41] LABS: Albumin 3.2 g/dL (3.5-5.0); Calcium 8.5 mg/dL (8.4-10.2); Potassium 4.1 mmol/L (3.5-5.1); Total Bilirubin 1.1 mg/dL (0.2-1.3); Total Protein 6.1 g/dL (6.3-8.2)
[2018-11-13] MEDS: FERROUS SULFATE 325 MG TAB PO SCH (07:51)
[2018-11-13] MEDS: FUROSEMIDE 20 MG TAB PO SCH ×2 (07:51→15:48)
[2018-11-13] MEDS: SACUBITRIL/VALSARTAN 24 MG-26 MG TABLET PO SCH ×2 (07:51→21:11)
[2018-11-13] MEDS: ATENOLOL 25 MG TAB PO SCH (07:51)
[2018-11-13] MEDS: ENOXAPARIN 40 MG/0.4 ML SYRINGE SQ SCH (07:51)
[2018-11-13 08:19] VITALS: RESP 18
[2018-11-13] MEDS ORDERED: ceFAZolin 1,000 MG in SODIUM CHLORIDE 0.9% IRRIGATIO 250 ML IRRIGATION ONE (10:12)
[2018-11-13] MEDS ORDERED: ceFAZolin IN SWFI 2 GM/20 ML SYRINGE IVP ONE (10:12)
[2018-11-13] MEDS ORDERED: SODIUM CHLORIDE 0.9% 1,000 ML IV SCH ×2 (10:15)
--- NOTE | 2018-11-13 10:23 | P.PN ---
Subjective Progress Note Date: 11/13/18 This is an 83-year-old male patient of Dr. Majano. Patient presented to the ER with complaints of increased lower extremity and groin swelling. Patient reports this is been occurring for 2 weeks. About a week and a half ago patient presented to his PCP which further recommended patient to go to [facility]. At that time patient was discharged on Bactrim for possible cellulitis. Patient reports that the swelling has not improved. Patient presented back to Dr. Majano's office in which he expressed concerns for possible CHF. Patient reports he has been unable to lay flat for years and also gets very short of breath with ambulation. Patient is on home Lasix in which she has been taking. Patient does believe he has history of CHF and follows with cardiology services. Patient's additional medical history includes myocardial infarction, thyroid disease, permanent pacemaker in 2007, deafness and ex-smoker. Chest x-ray completed showing chronic apathy matter change in cardiomegaly with mild central vascular congestion and small to moderate left pleural effusion with associated left basal atelectasis and/or infiltrate. Cardiology services consulted. 2-D echo has been ordered. Patient started on IV Lasix. Patient also started on IV antibiotics for possible lower extremity cellulitis. At this time patient denies chest pain. Patient does complain of some shortness of breath with lying flat inactivity. Patient denies nausea vomiting or diarrhea. Patient denies any urinary burning or frequency. On 11/10/2018 patient is currently working with physical therapy ambulating through halls. Patient underwent paracentesis yesterday 1450 mL off. Patient reports that he feels much improved. Patient remains on IV Lasix at this time. Blood culture has been ordered to assess for lower Imtiaz cellulitis. Patient remains on Kefzol. At this time patient denies chest pain or shortness breath. Patient denies nausea vomiting or diarrhea. Patient denies any urinary burning or frequency On 11/11/2018 patient is alert and oriented 3 in no apparent distress he denies any Dori at this time there is no fever or chills no headache or dizziness no chest pain no shortness of breath no cough no nausea or vomiting no abdominal pain no diarrhea and no urinary symptoms echocardiogram was done and revealed significant impairment in the left ventricular function with ejection fraction of 30-35% he was started on Entresto by cardiology On 11/12/2018 patient was seen and examined the telemetry floor he is alert and oriented 3 in no apparent distress he is denying any complaints at this time there is no fever or chills no headache or dizziness no chest pain no shortness of breath no cough no nausea or vomiting no abdominal pain no diarrhea and no urinary symptoms On 11/13/2018 patient's alert and oriented 3. [id number] is currently at bedside. Patient awaiting pacemaker battery change procedure. At this time patient reports significant improvement with shortness of breath. Patient's creatinine trending down to 1.28. This a.m. patient had temp of 100.5. Patient denies any significant complaints at this time. Patient denies chest pain or shortness breath. Patient denies nausea vomiting or diarrhea. Patient denies any urinary burning or frequency. Will order urinary analysis Objective - Vital Signs Vital signs: Vital Signs Temp 98.5 F 11/13/18 08:00 Pulse 56 L 11/13/18 08:00 Resp 18 11/13/18 08:00 BP 114/56 11/13/18 08:00 Pulse Ox 91 L 11/13/18 08:00 Intake & Output 11/12/18 11/13/18 11/13/18 18:59 06:59 18:59 Intake Total 480 Output Total 600 Balance -120 Weight 78 kg Intake: Oral 480 Output: Urine 600 Other: Voiding Method Urinal Urinal # Voids 1 - Exam Head normocephalic Neck supple Lungs diminished bilaterally Heart regular rate and rhythm S1-S2, no rub or gallop Abdomen is soft nontender nondistended positive bowel sounds no hepatosp lenomegaly Extremities generalized lower extremity and scrotal edema. Erythema noted to bilateral lower extremities Neuro alert and orientated to 3 - Labs CBC & Chem 7: 11/13/18 05:50 11/13/18 05:50 Labs: Abnormal Lab Results - Last 24 Hours (Table) 11/13/18 11/13/18 Range/Units 05:50 05:50 RBC 3.89 L (4.30-5.90) m/uL Hgb 11.8 L (13.0-17.5) gm/dL Hct 37.2 L (39.0-53.0) % RDW 16.0 H (11.5-15.5) % Plt Count 117 L (150-450) k/uL Lymphocytes # 0.7 L (1.0-4.8) k/uL BUN 36 H (9-20) mg/dL Creatinine 1.28 H (0.66-1.25) mg/dL Glucose 105 H (74-99) mg/dL Total Protein 6.1 L (6.3-8.2) g/dL Albumin 3.2 L (3.5-5.0) g/dL Microbiology - Last 24 Hours (Table) 11/09/18 15:50 Gram Stain - Preliminary Pleural Fluid Body Fluid Culture - Preliminary 11/09/18 14:32 Blood Culture - Preliminary Blood No Growth after 72 hours Assessment and Plan Assessment: 1. Bilateral lower extremity edema with shortness of breath likely due to acute on chronic systolic heart failure exacerbation. Patient started on IV Lasix per cardiology services. Patient had a recent 2-D echo performed in cardiology office showing an EF of 45% with severe mitral regurg and mild to moderate aortic regurg. Repeat 2-D echo has been ordered for this admission and it showed significantly depressed ejection fraction to 30-35% at this time patient was started on Entresto. Patient currently on by mouth Lasix 29 g twice a day 2. Left pleural effusion. Patient underwent thoracocentesis with Dr. Valencia 11/09/2018. 1450 mL fluid removed. Cytology sent 3. lower extremity cellulitis. Patient started on Kefzol IV antibiotics. Blood culture has been ordered 4. Acute on chronic renal insufficiency. Creatinine improving to 1.28 bun 36 5. Hypothyroidism. TSH level elevated at 9.470. Will increase Synthroid dose to 50 mcg 6. Permanent pacemaker implantation in 2007. Patient to have battery change today per cardiology services 7. Essential hypertension 8. Previous history of myocardial infarction 9. Deafness 10. Nicotine dependence. Patient educated greater than 3 minutes on smoking cessation. 11. Severe mitral valve and aortic valve disease contributing to patient's c ongestive heart failure. Cardiology services are following GI prophylaxis Protonix. DVT prophylaxis Lovenox patient had one temp of 100.5 throughout the night. Patient denies any symptoms at this time with blood cell 5.6. Will order urinary analysis I performed an examination of the patient and discussed their management with the Nurse Practitioner. I have reviewed the Nurse Practitioner's notes and agree with the documented findings and plan of care
--- NOTE | 2018-11-13 13:48 | P.PN ---
Progress Note - Text Progress Note Date: 11/13/18 This 83-year-old gentleman with history of cardiomyopathy was admitted to the hospital with increasing shortness of breath and evidence of CHF and also pleural effusion. Patient had pleural tap it. Patient is known to have complete heart block and had a permanent pacemaker implantation. The family was under the impression that patient needed a battery replacement. Patient has been refusing it for some time. Family is convinced him to have the procedure done this admission and we're plan for elective replacement of the battery. However , upon interrogation him it appears that patient still hasn't reached TELMA. There is a warning on this particular device about sudden loss of battery power and close monitoring advisory. At this point patient will not have the procedure done. He'll be monitored closely the month. From Cardec standpoint patient could be discharged. His BUN/creatinine have improved and patient is tolerating entresto. Patient will be discharged home. Close follow-up in the device clinic and also with Dr. Tate. GENERAL EXAM: Patient is alert and oriented and doesn't appear to be in any acute distress HEENT: Normocephalic. Normal reaction of pupils, equal size, normal range of extraocular motion. No erythema or exudates in the throat. NECK: No masses, no nuchal rigidity. CHEST: No chest wall deformity. LUNGS: Diminished breath sounds in bases. HEART: S1 and S2 normal with no audible mumurs or gallops. Regular rhythm, femorals equal on both sides.. ABDOMEN: No hepatosplenomegaly, normal bowel sounds, no guarding or rigidity. SKIN: No rashes CENTRAL NERVOUS SYSTEM: No focal deficits. EXTREMITIES: No cyanosis, clubbing or edema. Final impression: #1. Acute on chronic systolic CHF #2. Pleural effusion #3. History of complete heart block. #4. Status post permanent pacemaker implantation. Plan: Patient could be discharged home on current medical therapy. Follow up with Dr. Tate.
[2018-11-13] MEDS: NICOTINE 14MG/24HR PATCH TRANSDERM SCH (15:48)
[2018-11-13 21:30] LABS: Appearance,Urine Clear (Clear); Bilirubin,Urine Negative (Negative); Blood,Urine Trace (Negative); Color,Urine Yellow; Glucose,Urine (UA) Negative (Negative); Ketones,Urine Negative (Negative); Leukocyte Esterase,Urine Negative (Negative); Mucus,Urine Rare /hpf; Nitrite,Urine Negative (Negative); Protein,Urine Trace (Negative); RBC,Urine 2 /hpf (0-5); Specific Gravity,Urine 1.012 (1.001-1.035); Squamous Epithelial Cell,Urine 2 /hpf (0-4); WBC,Urine <1 /hpf (0-5)
[2018-11-14] MEDS: LEVOTHYROXINE 50 MCG TAB PO SCH (06:32)
[2018-11-14] MEDS: PANTOPRAZOLE 40 MG TABLET PO SCH (06:32)
[2018-11-14 06:48] LABS: Basophils % (A) 1 %; Eosinophils # (A) 0.1 k/uL (0-0.7); Eosinophils % (A) 2 %; HCT 35.3 % (39.0-53.0); HGB 11.6 gm/dL (13.0-17.5); Lymphocytes # (A) 0.7 k/uL (1.0-4.8); Lymphocytes % (A) 14 %; MCH 31.6 pg (25.0-35.0); MCHC 32.8 g/dL (31.0-37.0); MCV 96.3 fL (80.0-100.0); Mean Platelet Volume 7.1; Monocytes # (A) 0.5 k/uL (0-1.0); Monocytes % (A) 10 %; Neutrophils # (A) 3.5 k/uL (1.3-7.7); Neutrophils % (A) 71 %; Platelet Count 109 k/uL (150-450); RBC 3.66 m/uL (4.30-5.90); RDW 15.9 % (11.5-15.5); WBC 4.9 k/uL (3.8-10.6)
[2018-11-14 06:56] LABS: Albumin 3.1 g/dL (3.5-5.0); Calcium 8.6 mg/dL (8.4-10.2); Potassium 4.1 mmol/L (3.5-5.1); Total Bilirubin 1.4 mg/dL (0.2-1.3)
[2018-11-14] MEDS: ATENOLOL 25 MG TAB PO SCH (07:59)
[2018-11-14] MEDS: NICOTINE 14MG/24HR PATCH TRANSDERM SCH (07:59)
[2018-11-14] MEDS: SACUBITRIL/VALSARTAN 24 MG-26 MG TABLET PO SCH ×2 (07:59→21:41)
[2018-11-14] MEDS: FUROSEMIDE 20 MG TAB PO SCH ×2 (07:59→15:08)
[2018-11-14] MEDS: ENOXAPARIN 40 MG/0.4 ML SYRINGE SQ SCH (07:59)
[2018-11-14] MEDS: FERROUS SULFATE 325 MG TAB PO SCH (07:59)
[2018-11-14] MEDS ORDERED: ONDANSETRON 4 MG/2 ML VIAL IVP PRN (12:39)
--- NOTE | 2018-11-14 12:46 | P.PN ---
Subjective Progress Note Date: 11/14/18 This is an 83-year-old male patient of Dr. Majano. Patient presented to the ER with complaints of increased lower extremity and groin swelling. Patient reports this is been occurring for 2 weeks. About a week and a half ago patient presented to his PCP which further recommended patient to go to [facility]. At that time patient was discharged on Bactrim for possible cellulitis. Patient reports that the swelling has not improved. Patient presented back to Dr. Majano's office in which he expressed concerns for possible CHF. Patient reports he has been unable to lay flat for years and also gets very short of breath with ambulation. Patient is on home Lasix in which she has been taking. Patient does believe he has history of CHF and follows with cardiology services. Patient's additional medical history includes myocardial infarction, thyroid disease, permanent pacemaker in 2007, deafness and ex-smoker. Chest x-ray completed showing chronic apathy matter change in cardiomegaly with mild central vascular congestion and small to moderate left pleural effusion with associated left basal atelectasis and/or infiltrate. Cardiology services consulted. 2-D echo has been ordered. Patient started on IV Lasix. Patient also started on IV antibiotics for possible lower extremity cellulitis. At this time patient denies chest pain. Patient does complain of some shortness of breath with lying flat inactivity. Patient denies nausea vomiting or diarrhea. Patient denies any urinary burning or frequency. On 11/10/2018 patient is currently working with physical therapy ambulating through halls. Patient underwent paracentesis yesterday 1450 mL off. Patient reports that he feels much improved. Patient remains on IV Lasix at this time. Blood culture has been ordered to assess for lower Imtiaz cellulitis. Patient remains on Kefzol. At this time patient denies chest pain or shortness breath. Patient denies nausea vomiting or diarrhea. Patient denies any urinary burning or frequency On 11/11/2018 patient is alert and oriented 3 in no apparent distress he denies any Dori at this time there is no fever or chills no headache or dizziness no chest pain no shortness of breath no cough no nausea or vomiting no abdominal pain no diarrhea and no urinary symptoms echocardiogram was done and revealed significant impairment in the left ventricular function with ejection fraction of 30-35% he was started on Entresto by cardiology On 11/12/2018 patient was seen and examined the telemetry floor he is alert and oriented 3 in no apparent distress he is denying any complaints at this time there is no fever or chills no headache or dizziness no chest pain no shortness of breath no cough no nausea or vomiting no abdominal pain no diarrhea and no urinary symptoms On 11/13/2018 patient's alert and oriented 3. [id number] is currently at bedside. Patient awaiting pacemaker battery change procedure. At this time patient reports significant improvement with shortness of breath. Patient's creatinine trending down to 1.28. This a.m. patient had temp of 100.5. Patient denies any significant complaints at this time. Patient denies chest pain or shortness breath. Patient denies nausea vomiting or diarrhea. Patient denies any urinary burning or frequency. Will order urinary analysis On 11/14/2017 patient is alert and oriented 3. Patient did not undergo generator change due to pacemaker having greater than 20% battery life. Patient also still having low-grade temps 99.5. Infectious disease has been consulted. UA negative. Patient denies chest pain or shortness of breath. Patient denies nausea vomiting or diarrhea. Patient denies any urinary burning or frequency. Patient remains on Kefzol for cellulitis. Plan for discharge to [facility] in the next 24-48 hours Objective - Vital Signs Vital signs: Vital Signs Temp 98.5 F 11/14/18 11:43 Pulse 60 11/14/18 11:49 Resp 18 11/14/18 11:49 BP 107/65 11/14/18 11:43 Pulse Ox 91 L 11/14/18 11:43 Intake & Output 11/13/18 11/14/18 11/14/18 18:59 06:59 18:59 Intake Total 510 180 Output Total 280 600 Balance 510 280 420 Weight 76 kg Intake: Intake, IV Titration 150 Amount Sodium Chloride 0.9% 1, 150 000 ml @ 50 mls/hr IV . Q20H [facility] Rx#:[id number] Oral 360 180 Output: Urine 280 600 Other: Voiding Method Urinal Urinal Urinal # Voids 0 - Exam Head normocephalic Neck supple Lungs diminished bilaterally Heart regular rate and rhythm S1-S2, no rub or gallop Abdomen is soft nontender nondistended positive bowel sounds no hepatosplenomegaly Extremities generalized lower extremity and scrotal edema. Erythema noted to bilateral lower extremities Neuro alert and orientated to 3 - Labs CBC & Chem 7: 11/14/18 06:15 11/14/18 06:15 Labs: Abnormal Lab Results - Last 24 Hours (Table) 11/13/18 11/14/18 11/14/18 Range/Units Unknown 06:15 06:15 RBC 3.66 L (4.30-5.90) m/uL Hgb 11.6 L (13.0-17.5) gm/dL Hct 35.3 L (39.0-53.0) % RDW 15.9 H (11.5-15.5) % Plt Count 109 L (150-450) k/uL Lymphocytes # 0.7 L (1.0-4.8) k/uL BUN 29 H (9-20) mg/dL Total Bilirubin 1.4 H (0.2-1.3) mg/dL Total Protein 6.0 L (6.3-8.2) g/dL Albumin 3.1 L (3.5-5.0) g/dL Urine Protein Trace H (Negative) Urine Blood Trace H (Negative) Urine Mucus Rare H (None) /hpf Microbiology - Last 24 Hours (Table) 11/09/18 15:50 Gram Stain - Final Pleural Fluid Body Fluid Culture - Final 11/09/18 14:32 Blood Culture - Preliminary Blood No Growth after 96 hours Assessment and Plan Assessment: 1. Bilateral lower extremity edema with shortness of breath likely due to acute on chronic systolic heart failure exacerbation. Patient started on IV Lasix per cardiology services. Patient had a recent 2-D echo performed in cardiology office showing an EF of 45% with severe mitral regurg and mild to moderate aortic regurg. Repeat 2-D echo has been ordered for this admission and it showed significantly depressed ejection fraction to 30-35% at this time patient was started on Entresto. Patient currently on by mouth Lasix 29 g twice a day 2. Left pleural effusion. Patient underwent thoracocentesis with Dr. Valencia 11/09/2018. 1450 mL fluid removed. Cytology sent 3. lower extremity cellulitis. Patient started on Kefzol IV antibiotics. Blood culture has been ordered 4. Acute on chronic renal insufficiency. Creatinine improving to 1.28 bun 36 5. Hypothyroidism. TSH level elevated at 9.470. Will increase Synthroid dose to 50 mcg 6. Permanent pacemaker implantation in 2007. 7. Essential hypertension 8. Previous history of myocardial infarction 9. Deafness 10. Nicotine dependence. Patient educated greater than 3 minutes on smoking cessation. 11. Severe mitral valve and aortic valve disease contributing to patient's co ngestive heart failure. Cardiology services are following 12. Febrile. Patient had temperature of 100.5 and having low-grade temps of 99.5 infectious disease has been consulted. Patient remains on Kefzol for cellulitis. UA negative. White blood cell count within normal limits. GI prophylaxis Protonix. DVT prophylaxis Lovenox D/C planning to [place] I performed an examination of the patient and discussed their management with the Nurse Practitioner. I have reviewed the Nurse Practitioner's notes and agree with the documented findings and plan of care
[2018-11-14] MEDS: ceFAZolin 1,000 MG in DEXTROSE/WATER 1 50ML.BAG IVPB SCH ×2 (15:04→15:08)
--- NOTE | 2018-11-14 15:35 | P.PN ---
Subjective Progress Note Date: 11/14/18 This is a pleasant 83-year-old male falls Dr. Tate in the office past medical history significant for permanent pacemaker implantation with a dual- chamber Medtr[employer] device, chronic systolic heart failure, nonsustained ventricular tachycardia, rheumatic mitral stenosis with insufficiency and hyp ertension. He's been transitioned to oral diuretics. The patient had his device interrogated, he was not at [facility] and for this reason did not require generator change at this time. He was seen and examined today overall doing well. Anticipating discharge home tomorrow. Objective - Vital Signs Vital signs: Vital Signs Temp 98.5 F 11/14/18 11:43 Pulse 60 11/14/18 11:49 Resp 18 11/14/18 11:49 BP 107/65 11/14/18 11:43 Pulse Ox 91 L 11/14/18 11:43 Intake & Output 11/13/18 11/14/18 11/14/18 18:59 06:59 18:59 Intake Total 510 180 Output Total 280 600 Balance 510 -280 -420 Weight 76 kg Intake: Intake, IV Titration 150 Amount Sodium Chloride 0.9% 1, 150 000 ml @ 50 mls/hr IV . Q20H [facility] Rx#:[id number] Oral 360 180 Output: Urine 280 600 Other: Voiding Method Urinal Urinal Urinal # Voids 0 1 # Bowel Movements 1 - Exam GENERAL EXAM: Patient is alert and oriented and doesn't appear to be in any acute distress HEENT: Normocephalic. Normal reaction of pupils, equal size, normal range of extraocular motion. No erythema or exudates in the throat. NECK: No masses, no nuchal rigidity. CHEST: No chest wall deformity. LUNGS: Diminished breath sounds in bases. HEART: S1 and S2 normal with no audible mumurs or gallops. Regular rhythm, femorals equal on both sides.. ABDOMEN: No hepatosplenomegaly, normal bowel sounds, no guarding or rigidity. SKIN: No rashes CENTRAL NERVOUS SYSTEM: No focal deficits. EXTREMITIES: No cyanosis, clubbing or edema. - Labs CBC & Chem 7: 11/14/18 06:15 11/14/18 06:15 Labs: Abnormal Lab Results - Last 24 Hours (Table) 11/13/18 11/14/18 11/14/18 Range/Units Unknown 06:15 06:15 RBC 3.66 L (4.30-5.90) m/uL Hgb 11.6 L (13.0-17.5) gm/dL Hct 35.3 L (39.0-53.0) % RDW 15.9 H (11.5-15.5) % Plt Count 109 L (150-450) k/uL Lymphocytes # 0.7 L (1.0-4.8) k/uL BUN 29 H (9-20) mg/dL Total Bilirubin 1.4 H (0.2-1.3) mg/dL Total Protein 6.0 L (6.3-8.2) g/dL Albumin 3.1 L (3.5-5.0) g/dL Urine Protein Trace H (Negative) Urine Blood Trace H (Negative) Urine Mucus Rare H (None) /hpf Microbiology - Last 24 Hours (Table) 11/09/18 15:50 Gram Stain - Final Pleural Fluid Body Fluid Culture - Final 11/09/18 14:32 Blood Culture - Preliminary Blood No Growth after 96 hours Assessment and Plan Plan: Assessment and plan #1 symptoms of bilateral lower extremity edema and shortness of breath suggestive of congestive cardiac failure. Diastolic acute on chronic. Most recent echo performed in the office showed an ejection fraction of 45% with severe mitral regurg and mild to moderate aortic regurg. #2 nicotine dependence #3 history of prior pacemaker implantation #4 hypertension #5 hypothyroidism #6 acute on chronic renal insufficiency Plan Cardiology's perspective, patient may be able to be discharged home, we'll make a follow-up appointment in the office post discharge. DNP note has been reviewed, I agree with a documented findings and plan of care. Patient was seen and examined.
[2018-11-15] MEDS ORDERED: ceFAZolin 2,000 MG in DEXTROSE/WATER 1 50ML.BAG IVPB SCH
[2018-11-15] MEDS: ceFAZolin IN SWFI 2 GM/20 ML SYRINGE IVP SCH ×2 (00:01→14:36)
[2018-11-15 04:40] VITALS: PULSE 60
[2018-11-15] MEDS: PANTOPRAZOLE 40 MG TABLET PO SCH (06:29)
[2018-11-15] MEDS: LEVOTHYROXINE 50 MCG TAB PO SCH (06:29)
[2018-11-15 06:56] LABS: Basophils % (A) 1 %; Eosinophils # (A) 0.1 k/uL (0-0.7); Eosinophils % (A) 2 %; HCT 36.8 % (39.0-53.0); HGB 11.7 gm/dL (13.0-17.5); Lymphocytes # (A) 0.7 k/uL (1.0-4.8); Lymphocytes % (A) 13 %; MCH 30.3 pg (25.0-35.0); MCHC 31.7 g/dL (31.0-37.0); MCV 95.6 fL (80.0-100.0); Mean Platelet Volume 7.9; Monocytes # (A) 0.5 k/uL (0-1.0); Monocytes % (A) 9 %; Neutrophils # (A) 3.7 k/uL (1.3-7.7); Neutrophils % (A) 72 %; Platelet Count 129 k/uL (150-450); RBC 3.85 m/uL (4.30-5.90); RDW 15.9 % (11.5-15.5); WBC 5.1 k/uL (3.8-10.6)
--- NOTE | 2018-11-15 07:02 | CONS ---
CONSULTATION DATE OF SERVICE: 11/14/2018 REASON FOR CONSULTATION: Fever. HISTORY OF PRESENT ILLNESS: The patient is an 83-year-old male who presented to the ER about 6 days ago with chief complaints of increasing shortness of breath and lower extremity swelling. The patient's symptoms has been going on for a week or two before he presented to the hospital. The patient did have significant swelling in his scrotum and the groin area as well as the leg with some erythema. The patient has been diagnosed with acute congestive heart failure with possible lower extremity cellulitis. This patient did have an echocardiogram which did show low EF. The patient was afebrile on presentation. Did have a low-grade fever of 100.5 on 11/13 and a fever of 99.2 this morning with 99.3 at 8:00 that prompted this infectious disease consultation. Patient did not have any elevated white count since admission. Further workup including UA that was negative obtained yesterday. He did have a thoracentesis with pleural fluid elevated white count. The patient has been treated with cefazolin 1 gram q.8 hours for lower extremity cellulitis. With this fever, ID was consulted for further recommendation regarding antibiotic therapy. The patient currently denies having any headache or URI symptoms. His breathing has improved. Denies having any chest pain. Occasional cough. Patient denies any abdominal pain. No diarrhea. No burning or frequency of urine. His scrotal area swelling has improved as well. REVIEW OF SYSTEMS: Positive points have been mentioned in the HPI. The rest of the systems has been negative. PAST MEDICAL HISTORY: Myocardial infarction, hypothyroidism, hearing disorder. PAST SURGICAL HISTORY: Hernia repair and pacemaker placement. SOCIAL HISTORY: Remote history of smoking. No drinking or drug use. FAMILY HISTORY: No pertinent findings noticed. ALLERGIES: No known drug allergies. MEDICATIONS: Medications include the patient is currently on Tylenol, Tenormin, cefazolin 1 gram q.8, Lovenox, iron sulfate, Lasix, Synthroid, Narcan, nicotine patch, Zofran, Protonix, Entresto. PHYSICAL EXAMINATION: On examination, blood pressure is 128/74 with a pulse of 60, temperature 98.5. He is 93% on room air. General description is an elderly male lying in bed in no distress. No tachypnea or accessory muscle of respiration use. HEENT examination shows slight pallor. No scleral icterus. Oral mucous membrane is dry. No pharyngeal erythema or thrush. NECK: Trachea central. No thyromegaly. LUNGS: Unlabored breathing with decreased breath sounds in the bases. No wheeze. HEART: S1, S2. Regular rate and rhythm. ABDOMEN: Soft, no tenderness. No guarding or rigidity. LOWER EXTREMITIES: Minimal swelling, slight redness. No skin . No drainage. EXAMINATION OF THE SCROTAL AREA: No evidence of any cellulitis. NEUROLOGICAL: The patient is awake, alert, oriented x3. Mood and affect normal. LABS: Hemoglobin is 11.6, white count 4.9 with a BUN of 29, creatinine 1.07. UA has been negative. Blood culture negative. Pleural fluid culture has been negative. DIAGNOSTIC IMPRESSION AND PLAN: Patient with low-grade fever, could be more likely related to lower extremity cellulitis as the patient currently does not have any other clinical focus of infection. The patient did have a pleural fluid thoracentesis and those cultures are negative. UA is negative. Abdomen was soft on clinical examination. PLAN: 1. We will increase the dose cefazolin to 2 gram q.8 hours. 2. If the patient fever resolved and white count remains to be normal and the patient continued to improve to finish therapy with oral with close outpatient followup and continue supportive care. MMODL / IJN: [id number] /
[2018-11-15 07:05] LABS: Albumin 3.2 g/dL (3.5-5.0); Calcium 8.4 mg/dL (8.4-10.2); Potassium 4.1 mmol/L (3.5-5.1); Total Bilirubin 1.1 mg/dL (0.2-1.3); Total Protein 6.3 g/dL (6.3-8.2)
[2018-11-15] MEDS: ENOXAPARIN 40 MG/0.4 ML SYRINGE SQ SCH (08:54)
[2018-11-15] MEDS: FERROUS SULFATE 325 MG TAB PO SCH (08:54)
[2018-11-15] MEDS: FUROSEMIDE 20 MG TAB PO SCH (08:54)
[2018-11-15] MEDS: NICOTINE 14MG/24HR PATCH TRANSDERM SCH (08:54)
[2018-11-15] MEDS: ATENOLOL 25 MG TAB PO SCH (08:54)
[2018-11-15] MEDS: SACUBITRIL/VALSARTAN 24 MG-26 MG TABLET PO SCH (08:54)
[2018-11-15 11:18] VITALS: TEMP 98.3
--- NOTE | 2018-11-15 12:32 | PN ---
PROGRESS NOTE DATE OF SERVICE: 11/15/2018 REASON FOR FOLLOWUP: Fever and lower extremity cellulitis. INTERVAL HISTORY: The patient is currently afebrile. The patient is feeling better. Breathing comfortably. Denies having any chest pain or any cough. No abdominal pain. Have pain to the leg area. Overall swelling has improved. PHYSICAL EXAMINATION: On examination, blood pressure 110/55, pulse of 60, temperature 98.3. He is 94% on 2 L nasal cannula. General description is an elderly male up in the bed in no distress. RESPIRATORY SYSTEM: Unlabored breathing, clear to auscultation. HEART: S1, S2. Regular rate and rhythm. ABDOMEN: Soft, no tenderness. Leg swelling and redness has improved. LABS: White count 5.1. BUN 31, creatinine 1.08. DIAGNOSTIC IMPRESSION AND PLAN: Patient with bilateral lower extremity cellulitis . Overall the patient seemed to have shown overall clinical improvement. Plan at this time is to finish therapy with 500 mg 3 times a day for about a week and a close outpatient followup. Continue with supportive care. MMODL / IJN: [id number] /
--- NOTE | 2018-11-15 12:37 | P.PN ---
Subjective Progress Note Date: 11/15/18 This is a pleasant 83-year-old male falls Dr. Tate in the office past medical history significant for permanent pacemaker implantation with a dual- chamber [employer]tr[employer] device, chronic systolic heart failure, nonsustained ventricular tachycardia, rheumatic mitral stenosis with insufficiency and hyp ertension. He's been transitioned to oral diuretics. The patient had his device interrogated, he was not at [facility] and for this reason did not require generator change at this time. He was seen and examined today overall doing well. Anticipating discharge home tomorrow. 11/15/2018 Patient seen and examined this morning, overall doing well. Hemodynamically stable. Anticipating discharge home today. Objective - Vital Signs Vital signs: Vital Signs Temp 98.3 F 11/15/18 08:00 Pulse 60 11/15/18 08:00 Resp 18 11/15/18 08:00 BP 110/55 11/15/18 08:00 Pulse Ox 94 L 11/15/18 08:00 Intake & Output 11/14/18 11/15/18 11/15/18 18:59 06:59 18:59 Intake Total 420 240 Output Total 600 620 Balance -180 -620 240 Weight 78.9 kg Intake: Oral 420 240 Output: Urine 600 620 Other: Voiding Method Urinal Urinal Urinal # Voids 0 # Bowel Movements 1 1 - Exam GENERAL EXAM: Patient is alert and oriented and doesn't appear to be in any acute distress HEENT: Normocephalic. Normal reaction of pupils, equal size, normal range of extraocular motion. No erythema or exudates in the throat. NECK: No masses, no nuchal rigidity. CHEST: No chest wall deformity. LUNGS: Diminished breath sounds in bases. HEART: S1 and S2 normal with no audible mumurs or gallops. Regular rhythm, femorals equal on both sides.. ABDOMEN: No hepatosplenomegaly, normal bowel sounds, no guarding or rigidity. SKIN: No rashes CENTRAL NERVOUS SYSTEM: No focal deficits. EXTREMITIES: No cyanosis, clubbing or edema. - Labs CBC & Chem 7: 11/15/18 06:34 11/15/18 06:34 Labs: Abnormal Lab Results - Last 24 Hours (Table) 11/15/18 11/15/18 Range/Units 06:34 06:34 RBC 3.85 L (4.30-5.90) m/uL Hgb 11.7 L (13.0-17.5) gm/dL Hct 36.8 L (39.0-53.0) % RDW 15.9 H (11.5-15.5) % Plt Count 129 L (150-450) k/uL Lymphocytes # 0.7 L (1.0-4.8) k/uL BUN 31 H (9-20) mg/dL Glucose 108 H (74-99) mg/dL Albumin 3.2 L (3.5-5.0) g/dL Microbiology - Last 24 Hours (Table) 11/09/18 14:32 Blood Culture - Preliminary Blood No Growth after 120 hours Assessment and Plan Plan: Assessment and plan #1 symptoms of bilateral lower extremity edema and shortness of breath ruano ggestive of congestive cardiac failure. Diastolic acute on chronic. Most recent echo performed in the office showed an ejection fraction of 45% with severe mitral regurg and mild to moderate aortic regurg. #2 nicotine dependence #3 history of prior pacemaker implantation #4 hypertension #5 hypothyroidism #6 acute on chronic renal insufficiency Plan Cardiology's perspective, patient may be able to be discharged home, we'll make a follow-up appointment in the office post discharge. DNP note has been reviewed, I agree with a documented findings and plan of care. Patient was seen and examined.
--- NOTE | 2018-11-15 13:28 | P.DS ---
Providers Date of admission: 11/09/18 13:53 Expected date of discharge: 11/15/18 Attending physician: Bipin Garcia Consults: 11/08/18 16:51 Consult Physician Routine Consulting Provider: Jean-Paul Tate Consult Reason/Comments: heart failure Do you want consulting provider notified?: Yes 11/09/18 13:02 Consult Physician Routine Consulting Provider: Cory Valencia Consult Reason/Comments: chest xray, increase shortness of breath Do you want consulting provider notified?: Yes 11/13/18 13:45 Consult Physician Routine Consulting Provider: Estela Carias Consult Reason/Comments: elevated temp Do you want consulting provider notified?: Yes Primary care physician: Marilyn Mauro Hospital Course: Discharge diagnosis 1. Bilateral lower extremity edema with shortness of breath likely due to acute on chronic systolic heart failure exacerbation. Patient started on IV Lasix per cardiology services. Patient had a recent 2-D echo performed in cardiology office showing an EF of 45% with severe mitral regurg and mild to moderate aortic regurg. Repeat 2-D echo has been ordered for this admission and it showed significantly depressed ejection fraction to 30-35% at this time patient was started on Entresto. Patient currently on by mouth Lasix 20 g twice a day. Patient has been started on the chest up 2. Left pleural effusion. Patient underwent thoracocentesis with Dr. Valencia 11/09/2018. 1450 mL fluid removed. Cytology sent 3. lower extremity cellulitis. Patient started on Kefzol IV antibiotics. Blood culture no growth. Patient will be DC'd on Keflex for 7 more days 4. Acute on chronic renal insufficiency. Creatinine improving to 1.28 bun 36. resolved 5. Hypothyroidism. TSH level elevated at 9.470. Will increase Synthroid dose to 50 mcg 6. Permanent pacemaker implantation in 2007. 7. Essential hypertension 8. Previous history of myocardial infarction 9. Deafness 10. Nicotine dependence. Patient educated greater than 3 minutes on smoking cessation. 11. Severe mitral valve and aortic valve disease contributing to patient's congestive heart failure. Cardiology services are following 12. Febrile. Patient had temperature of 100.5 and having low-grade temps of 99.5 infectious disease has been consulted. Patient remains on Kefzol for cellulitis. UA negative. White blood cell count within normal limits. Fever has improved. Discussed with after Sayed per infectious disease. Patient will be DC'd on Keflex for 7 more days Hospital course This is an 83-year-old male patient of Dr. Majano. Patient presented to the ER with complaints of increased lower extremity and groin swelling. Patient reports this is been occurring for 2 weeks. About a week and a half ago patient presented to his PCP which further recommended patient to go to [facility]. At that time patient was discharged on Bactrim for possible cellulitis. Patient reports that the swelling has not improved. Patient presented back to Dr. Majano's office in which he expressed concerns for possible CHF. Patient reports he has been unable to lay flat for years and also gets very short of breath with ambulation. Patient is on home Lasix in which she has been taking. Patient does believe he has history of CHF and follows with cardiology services. Patient's additional medical history includes myocardial infarction, thyroid disease, permanent pacemaker in 2007, deafness and ex-smoker. Chest x-ray completed showing chronic apathy matter change in cardiomegaly with mild central vascular congestion and small to moderate left pleural effusion with associated left basal atelectasis and/or infiltrate. Cardiology services consulted. 2-D echo has been ordered. Patient started on IV Lasix. Patient also started on IV antibiotics for possible lower extremity cellulitis. At this time patient denies chest pain. Patient does complain of some shortness of breath with lying flat inactivity. Patient denies nausea vomiting or diarrhea. Patient denies any urinary burning or frequency. On 11/10/2018 patient is currently working with physical therapy ambulating through halls. Patient underwent paracentesis yesterday 1450 mL off. Patient reports that he feels much improved. Patient remains on IV Lasix at this time. Blood culture has been ordered to assess for lower Imtiaz cellulitis. Patient remains on Kefzol. At this time patient denies chest pain or shortness breath. Patient denies nausea vomiting or diarrhea. Patient denies any urinary burning or frequency On 11/11/2018 patient is alert and oriented 3 in no apparent distress he denies any Dori at this time there is no fever or chills no headache or dizziness no chest pain no shortness of breath no cough no nausea or vomiting no abdominal pain no diarrhea and no urinary symptoms echocardiogram was done and revealed significant impairment in the left ventricular function with ejection fraction of 30-35% he was started on Entresto by cardiology On 11/12/2018 patient was seen and examined the telemetry floor he is alert and oriented 3 in no apparent distress he is denying any complaints at this time there is no fever or chills no headache or dizziness no chest pain no shortness of breath no cough no nausea or vomiting no abdominal pain no diarrhea and no urinary symptoms On 11/13/2018 patient's alert and oriented 3. [id number] is currently at bedside. Patient awaiting pacemaker battery change procedure. At this time patient reports significant improvement with shortness of breath. Patient's creatinine trending down to 1.28. This a.m. patient had temp of 100.5. Patient denies any significant complaints at this time. Patient denies chest pain or shortness breath. Patient denies nausea vomiting or diarrhea. Patient denies any urinary burning or frequency. Will order urinary analysis On 11/14/2017 patient is alert and oriented 3. Patient did not undergo genera tor change due to pacemaker having greater than 20% battery life. Patient also still having low-grade temps 99.5. Infectious disease has been consulted. UA negative. Patient denies chest pain or shortness of breath. Patient denies nausea vomiting or diarrhea. Patient denies any urinary burning or frequency. Patient remains on Kefzol for cellulitis. Plan for discharge to [facility] in the next 24-48 hours On 11/15/2017 patient is alert and oriented 3. Patient was evaluated by infectious disease. Patient to be DC'd on Keflex for 7 days per ID. Patient also started on Entresto per cardiology. At this time patient denies chest pain or shortness breath. Patient denies nausea vomiting or diarrhea. Patient denies any urinary burning or frequency. Patient is being discharged to [facility] I performed an examination of the patient and discussed their management with the Nurse Practitioner. I have reviewed the Nurse Practitioner's notes and agree with the documented findings and plan of care Patient Condition at Discharge: Stable Plan - Discharge Summary Discharge Rx Participant: No New Discharge Prescriptions: New Sacubitril/Valsartan [Entresto 24 mg-26 mg Tablet] 1 each PO BID tablet Nicotine 14Mg/24Hr Patch [Habitrol] 1 patch TRANSDERM DAILY #0 patch Cephalexin [Keflex] 500 mg PO Q8HR 7 Days #21 cap Furosemide [Lasix] 20 mg PO BID@0900,1600 tab Levothyroxine Sodium [Synthroid] 50 mcg PO DAILY@0630 tab Acetaminophen Tab [Tylenol] 650 mg PO Q6HR PRN tab PRN Reason: Mild Pain Or Fever > 100.5 Continue Ferrous Sulfate [Iron (65 MG Elemental)] 325 mg PO DAILY Atenolol [Tenormin] 25 mg PO DAILY Discontinued Levothyroxine Sodium [Levoxyl] 25 mcg PO DAILY Sulfamethoxazole/Trimethoprim [Bactrim DS 800-160 mg] 1 tab PO BID Furosemide [Lasix] 20 mg PO BID Discharge Medication List Atenolol [Tenormin] 25 mg PO DAILY 11/08/18 [History] Ferrous Sulfate [Iron (65 MG Elemental)] 325 mg PO DAILY 11/08/18 [History] Acetaminophen Tab [Tylenol] 650 mg PO Q6HR PRN tab 11/15/18 [Rx] Cephalexin [Keflex] 500 mg PO Q8HR 7 Days #21 cap 11/15/18 [Rx] Furosemide [Lasix] 20 mg PO BID@0900,1600 tab 11/15/18 [Rx] Levothyroxine Sodium [Synthroid] 50 mcg PO DAILY@0630 tab 11/15/18 [Rx] Nicotine 14Mg/24Hr Patch [Habitrol] 1 patch TRANSDERM DAILY #0 patch 11/15/18 [Rx] Sacubitril/Valsartan [Entresto 24 mg-26 mg Tablet] 1 each PO BID tablet 11/15/18 [Rx] Follow up Appointment(s)/Referral(s): Cory Valencia MD [STAFF PHYSICIAN] - 12/05/18 1:00 pm Jori Pretty [NON-STAFF] - 1 Week Marilyn Mauro MD [Primary Care Provider] - 1-2 days (Please follow up within one week of being discharged from [facility].) Jean-Paul Tate MD [STAFF PHYSICIAN] - 12/12/18 3:45 pm Patient Instructions/Handouts: Heart Failure (DC), Heart Healthy Diet (DC), Thoracentesis (DC) Activity/Diet/Wound Care/Special Instructions: [place] Discharge Disposition: TRANSFER TO SNF/ECF
[2018-11-15 14:20] VITALS: BP 117/55
== END 2018-11-15 15:45 | DRG 291 ==
LOC: EC 13:11 → 3SCARD 16:54 → OBSVTOIN 11-09 13:53
PROVIDERS: ADMIT Internal Medicine; ATTEND Internal Medicine
PROC: 0W9B3ZZ Drainage of Left Pleural Cavity, Percutaneous Approach (ICD-10-PCS; principal; 2018-11-09)
DX: I13.0 Hypertensive heart and chronic kidney disease with heart failure and stage 1 through stage 4 chronic kidney disease, or unspecified chronic kidney disease (principal); I50.23 Acute on chronic systolic (congestive) heart failure; J91.8 Pleural effusion in other conditions classified elsewhere; J98.11 Atelectasis; L03.115 Cellulitis of right lower limb; L03.116 Cellulitis of left lower limb; N17.9 Acute kidney failure, unspecified; I27.20 Pulmonary hypertension, unspecified; J43.9 Emphysema, unspecified; I42.9 Cardiomyopathy, unspecified; N18.3 Chronic kidney disease, stage 3 (moderate); E03.9 Hypothyroidism, unspecified; F17.200 Nicotine dependence, unspecified, uncomplicated; H91.90 Unspecified hearing loss, unspecified ear; I08.0 Rheumatic disorders of both mitral and aortic valves; I25.10 Atherosclerotic heart disease of native coronary artery without angina pectoris; I25.2 Old myocardial infarction; I87.8 Other specified disorders of veins; Z79.890 Hormone replacement therapy; Z79.899 Other long term (current) drug therapy; Z95.0 Presence of cardiac pacemaker; Z71.6 Tobacco abuse counseling
CPT/HCPCS: 36415; 71045; 71046; 76604; 80048; 80053; 81001; 82040; 82945; 83615; 83880; 84157; 84439; 84443; 84484; 85025; 85610; 85730; 87040; 87070; 87102; 87116; 87205; 87206; 88108; 88305; 89050; 93005; 93306; 94760; 96374; 99285

== ENCOUNTER 2018-12-07 12:31 | Day surgery (SDC) | payer MEDICARE ==
[2018-12-07 13:06] LABS: Platelet Count 132 k/uL (150-450)
[2018-12-07 13:16] LABS: Prothrombin Time 10.6 sec (9.0-12.0)
[2018-12-07 13:18] VITALS: RESP 16; TEMP 97.3
[2018-12-07 14:19] VITALS: BP 121/71; PULSE 66
--- NOTE | 2018-12-07 14:27 | XR ---
EXAMINATION TYPE: XR chest 1V portable DATE OF EXAM: 12/07/2018 COMPARISON: Prior chest x-ray 11/10/2018, 12/05/2018 HISTORY: Status post thoracentesis TECHNIQUE: Single frontal view of the chest is obtained. FINDINGS: There is no evident pneumothorax. There is some blunting of the costophrenic angle on the left compatible with small residual effusion and atelectasis. Heart remains enlarged. Pacemaker is st able. Surgical clips present in the upper abdomen. The aorta is dense and possibly ectatic. IMPRESSION: No evident complication status post thoracentesis.
--- NOTE | 2018-12-07 16:36 | US ---
EXAMINATION TYPE: US thoracentesis DATE OF EXAM: 12/07/2018 COMPARISON: Chest x-ray 12/05/2017 HISTORY: Pleural effusion. FINDINGS: Maximal barrier technique was utilized. The skin overlying a suitable pocket of fluid was localized and the overlying skin prepped and draped. Lidocaine was used for local anesthesia. Ultras ound was used with sterile technique. A 5 Kosovan catheter over guide needle was advanced into the pl eural fluid collection using ultrasound guidance and the catheter was advanced and needle removed. A pproximately 1.31 liter(s) of serous fluid was removed. Catheter was withdrawn and hemostasis achiev ed. There is no immediate complication. The patient discharged in stable condition without complica tion. IMPRESSION: STATUS POST ULTRASOUND GUIDED THORACENTESIS, POST PROCEDURE CHEST X-RAY PENDING. THIS VT OCEDURE WAS PERFORMED BY THE UNDERSIGNED. Specimen obtained for laboratory analysis.
[2018-12-07 18:10] LABS: Appearance,BF Hazy; Color,BF Yellow
[2018-12-07 18:11] LABS: Nucleated Cells, Body Fluid 100 /uL; RBC, Body Fluid 193 /uL
[2018-12-07 18:13] LABS: Mononuclear WBC,Body Fluid 87 %; Polynuclear WBC,Body Fluid 11 %; Total Cells Counted,Body Fluid 100
== END 2018-12-07 14:40 | disposition home or self-care (01) ==
LOC: RADPROMAIN 12:31
PROVIDERS: ATTEND Internal Medicine
DX: J90 Pleural effusion, not elsewhere classified (principal)
CPT/HCPCS: 32555; 36415; 71045; 82945; 83615; 84157; 85049; 85610; 87070; 87075; 87116; 87205; 87206; 88108; 88305; 89050

== ENCOUNTER → 2019-07-23 | Outpatient (CLI) | payer MEDICARE ==
--- NOTE | 2019-07-23 14:19 | XR ---
EXAMINATION TYPE: XR chest 2V DATE OF EXAM: 07/23/2019 COMPARISON: Prior chest x-ray 12/07/2018 HISTORY: Shortness of breath TECHNIQUE: Frontal and lateral views of the chest are obtained. FINDINGS: Interstitium and central vascularity are prominent. The heart is likely enlarged. There is obscured left hemidiaphragm and heart border, blunting of the left gastric angle level. No pneumotho rax. Aorta is dense. Generator is present in left pectoral region, there are leads in the right atriu m and ventricle. Surgical clips present in the midline. Prominent lung volume may be indicative of un derlying COPD. IMPRESSION: Correlate for congestive heart failure with probable left pleural effusion and associate d atelectasis or edema, pneumonia not excluded. Additional follow-up recommended.
== END | disposition home or self-care (01) ==
LOC: RADXRMAIN 12:06
PROVIDERS: ATTEND Family Medicine
DX: R06.02 Shortness of breath (principal)
CPT/HCPCS: 71046

== ENCOUNTER → 2019-08-05 | Outpatient (CLI) | payer MEDICARE, BC ==
[2019-08-06 10:10] LABS: African American GFR (CKD) 49.5 (60.0-200.0); Anion Gap 6.9 mmol/L (4.00-12.00); Carbon Dioxide 32.1 mmol/L (21.6-31.8); Non-African American GFR(CKD) 42.7 (60.0-200.0); Potassium 4.3 mmol/L (3.5-5.5)
== END | disposition home or self-care (01) ==
LOC: LABMAIN 11:57
PROVIDERS: ATTEND Internal Medicine Cardiovascular Disease
DX: I50.22 Chronic systolic (congestive) heart failure (principal)
CPT/HCPCS: 36415; 80051; 82565; 83880; 84520

== ENCOUNTER → 2019-08-09 | Outpatient (CLI) | payer MEDICARE, BC ==
--- NOTE | 2019-08-09 12:38 | XR ---
EXAMINATION TYPE: XR chest 2V DATE OF EXAM: 08/09/2019 COMPARISON: 07/23/2019 TECHNIQUE: PA and lateral views submitted. HISTORY: Shortness of breath FINDINGS: Cardiac device with cardiomegaly and diffuse interstitial pattern with left lower lobe consolidation small effusion. No pneumothorax. Atherosclerotic change aorta. Prominence of the pulmonary arteries. IMPRESSION: 1. COPD with a left lower lobe infiltrate and small effusion correlate for underlying CHF or intersti tial pneumonitis.
[2019-08-09 12:59] LABS: Potassium 4.7 mmol/L (3.5-5.1)
== END ==
LOC: RADXRMAIN 11:35
PROVIDERS: ATTEND Internal Medicine Cardiovascular Disease
DX: J44.9 Chronic obstructive pulmonary disease, unspecified (principal); R91.8 Other nonspecific abnormal finding of lung field; J90 Pleural effusion, not elsewhere classified
CPT/HCPCS: 71046; 80051; 82565; 84520

== ENCOUNTER 2019-08-24 06:29 | Day surgery (SDC) | payer BC, MEDICARE ==
[2019-08-22 11:15] VITALS: BMI 26.4
[~2019-08-24 06:29] MED LIST: BENZOCAINE SPRAY 1 CAN TOPICAL PRN; MIDAZOLAM 2 MG/2 ML VIAL IV ONE; fentaNYL (PF) 50 MCG/ML 5 ML AMP IVP ONE
[2019-08-24 06:59] VITALS: TEMP 97.6
[2019-08-24] MEDS ORDERED: SODIUM CHLORIDE 0.9% 500 ML 500 ML IV ONE (07:04)
[2019-08-24] MEDS ORDERED: fentaNYL (PF) 50 MCG/ML 2 ML AMP ONE (07:18)
[2019-08-24] MEDS ORDERED: BENZOCAINE SPRAY 1 CAN TOPICAL ONE (07:33)
[2019-08-24] MEDS ORDERED: MIDAZOLAM 2 MG/2 ML VIAL IV ONE ×2 (07:43)
[2019-08-24] MEDS ORDERED: fentaNYL (PF) 50 MCG/ML 2 ML AMP IV ONE (07:43)
--- NOTE | 2019-08-24 08:25 | ECHOT ---
TRANSESOPHAGEAL ECHOCARDIOGRAM INDICATION: Mixed mitral valve disease with severe mitral regurgitation and mitral stenosis. PROCEDURE NOTE: After obtaining informed consent, transesophageal echocardiogram was performed in left lateral position using an Omniplane probe. Local and IV sedation were obtained using 2 mg of Versed and 50 mcg of fentanyl. The patient tolerated the procedure well without any obvious immediate complications. FINDINGS: 1. Mitral valve appears thickened, calcified with moderate to severe restriction in leaflet mobility. Mitral valve leaflets appear calcified anterior more than posterior. There is severe mitral regurgitation noted. The peak gradient across the mitral valve is 32 mm while the mean gradient is 9.5 mm. 2. Aortic valve shows aortic sclerosis with mild aortic regurgitation. 3. Tricuspid valve shows severe tricuspid regurgitation. 4. Left atrium appears severely enlarged. 5. Right atrium appears mildly enlarged. 6. Left ventricle appears dilated with diffuse global hypokinesis and severe LV systolic dysfunction with an ejection fraction of 30% to 35%. 7. Aorta shows severe atherosclerotic changes. CONCLUSIONS: 1. Calcified mitral valve with restricted leaflet mobility. Mitral anulus does not seem particularly calcified, but the leaflets themselves are calcified and thickened. There is severe mitral regurgitation that is central and there is a peak gradient of 30 mm and a mean gradient of 10 mm across the valve. The patient has severe mitral stenosis. 2. There is severe tricuspid regurgitation. 3. There is cardiomyopathy with severe left ventricular systolic dysfunction. PLAN: Patient will be seen by the [facility] at [facility]. VENECIA / MAHAMED: [id number] /
[2019-08-24 10:24] VITALS: BP 105/54; PULSE 59; RESP 16
== END 2019-08-24 09:15 | disposition home or self-care (01) ==
LOC: CATHCVL 06:29
PROVIDERS: ATTEND Internal Medicine Cardiovascular Disease
DX: I08.3 Combined rheumatic disorders of mitral, aortic and tricuspid valves (principal); I70.0 Atherosclerosis of aorta; I42.8 Other cardiomyopathies; I50.22 Chronic systolic (congestive) heart failure; I49.5 Sick sinus syndrome; I27.20 Pulmonary hypertension, unspecified; E78.5 Hyperlipidemia, unspecified; Z95.0 Presence of cardiac pacemaker; Z79.890 Hormone replacement therapy; Z79.899 Other long term (current) drug therapy; Z87.891 Personal history of nicotine dependence
CPT/HCPCS: 93312; J2250; J3010; 93320; 93325

== ENCOUNTER → 2019-09-26 | Outpatient (CLI) | payer MEDICARE ==
[2019-09-27 01:13] LABS: African American GFR (CKD) 45.5 (60.0-200.0); Anion Gap 11.8 mmol/L (4.00-12.00); Carbon Dioxide 28.2 mmol/L (21.6-31.8); Non-African American GFR(CKD) 39.3 (60.0-200.0); Potassium 4.5 mmol/L (3.5-5.5)
== END | disposition home or self-care (01) ==
LOC: LABWHC1 14:31
PROVIDERS: ATTEND Internal Medicine Cardiovascular Disease
DX: I50.9 Heart failure, unspecified (principal)
CPT/HCPCS: 36415; 80051; 82565; 84520

== ENCOUNTER → 2019-10-23 | Outpatient (CLI) | payer MEDICARE, BC ==
[2019-10-23 18:50] LABS: African American GFR (CKD) 53.5 (60.0-200.0); Anion Gap 9.1 mmol/L (4.00-12.00); Carbon Dioxide 29.9 mmol/L (21.6-31.8); Non-African American GFR(CKD) 46.1 (60.0-200.0); Potassium 4.4 mmol/L (3.5-5.5)
== END ==
LOC: LABWHC1 12:32
PROVIDERS: ATTEND Internal Medicine Cardiovascular Disease
DX: I50.22 Chronic systolic (congestive) heart failure (principal)
CPT/HCPCS: 36415; 80051; 82565; 84520

== ENCOUNTER 2019-11-02 10:10 | Day surgery (SDC) | payer MEDICARE ==
[2019-10-31 15:59] VITALS: BMI 26.7
[~2019-11-02 10:10] MED LIST changes: -BENZOCAINE SPRAY 1 CAN TOPICAL PRN; -MIDAZOLAM 2 MG/2 ML VIAL IV ONE; +SODIUM CHLORIDE 0.9% 1,000 ML IV SCH; +ceFAZolin 1,000 MG in SODIUM CHLORIDE 0.9% IRRIGATIO 1,000 ML IRRIGATION ONE; +ceFAZolin 1,000 MG in SODIUM CHLORIDE 0.9% IRRIGATIO 250 ML IRRIGATION ONE; -fentaNYL (PF) 50 MCG/ML 5 ML AMP IVP ONE
[2019-11-02 10:34] VITALS: RESP 16; TEMP 97.7
[2019-11-02 10:52] LABS: Basophils % (A) 0 %; Eosinophils # (A) 0.2 k/uL (0-0.7); Eosinophils % (A) 4 %; HCT 37.1 % (39.0-53.0); HGB 12.1 gm/dL (13.0-17.5); Lymphocytes # (A) 0.9 k/uL (1.0-4.8); Lymphocytes % (A) 16 %; MCHC 32.6 g/dL (31.0-37.0); MCV 98.1 fL (80.0-100.0); Mean Platelet Volume 8.6; Monocytes # (A) 0.3 k/uL (0-1.0); Monocytes % (A) 7 %; Neutrophils # (A) 3.8 k/uL (1.3-7.7); Neutrophils % (A) 71 %; Platelet Count 104 k/uL (150-450); RBC 3.79 m/uL (4.30-5.90); RDW 14.2 % (11.5-15.5); WBC 5.3 k/uL (3.8-10.6)
[2019-11-02 10:57] LABS: Calcium 9.7 mg/dL (8.4-10.2); Potassium 4.6 mmol/L (3.5-5.1)
[2019-11-02] MEDS ORDERED: fentaNYL (PF) 50 MCG/ML 2 ML AMP ONE (11:07)
[2019-11-02] MEDS ORDERED: fentaNYL (PF) 50 MCG/ML 2 ML AMP IV ONE (11:13)
[2019-11-02] MEDS ORDERED: LIDOCAINE 1% INJ 10MG/ML (20 ML MDV) SQ ONE (11:18)
[2019-11-02] MEDS ORDERED: ACETAMINOPHEN TAB 325 MG TAB PO PRN (11:47)
--- NOTE | 2019-11-02 12:00 | P.PCN ---
Date of Procedure: 11/02/19 Preoperative Diagnosis: Battery depletion Postoperative Diagnosis: The same Procedure(s) Performed: Generator change Description of Procedure: HISTORY: This is a 84-year-old gentleman with history of permanent pacemaker implantation who has reached [facility]. Patient is advised to have generator change and was brought in for outpatient procedure CONSENT: I have discussed the risks and benefits as related to the above mentioned procedure and both sedation/analgesia as well as necessary blood product administration. The patient has indicated understanding and acceptance of the risks of the procedure discussed. PROCEDURE: Patient was brought to the lab in a fasting state. Patient was given IV Versed and fentanyl for sedation. The skin over the existing pulse generator was infiltrated with lidocaine. An incision was made in the skin and was deepened until the pectoral fascia was exposed. Hemostasis was obtained. The existing pulse generator was pulled out of the pocket. The leads were disconnected and were checked for thresholds. Conscious Sedation: Versed 0mg Fentanyl 12.5 g Duration 21minutes THRESHOLDS: ATRIAL:. Patient is in atrial fibrillat ion. Thresholds could not be measured VENTRICULAR: The minimal patient threshold is 1 at pulse width of 0.5. The impedance is 493 ohms. The R-wave: 8.6 THE LEADS: ATRIAL:. This is manufactured by [employer]. Model number is 5076-45. The serial number is [id number] VENTRICULAR:. This is manufactured by [employer]. Model number is 5076-58. Serial number is [id number] THE EXPLANTED DEVICE: This is manufactured by [employer]. Model number is [id number] and the serial number is [id number] THE NEW DEVICE: This is manufactured by [employer]. Model number [id number] and the serial number is [id number]. The leads were then connected to a new pulse generator. Pacemaker seems to function normally. The pocket was irrigated with antibiotics. The pocket was closed in the usual fashion. Pectoral fascia was closed with 2-0 Prolene, the subcutaneous tissue was closed with 3-0 Prolene and the skin was closed with 4-0 Prolene. Patient tolerated the procedure well . Patient will be monitored on the telemetry unit for 2-3 hours. If stable patient be discharged home later today. PLAN: Continue monitoring for the next 2 hours. If stable patient be discharged home. Could to continue home medications and prophylactic antibiotics FALLOW UP: Follow-up with Dr. Bebeto Shirley Programming: The pacemaker is programmed to AAIR with mode switch to DDDR. The rate is 60-120. There output in the ventricle is programmed to 2 V
[2019-11-02 14:08] VITALS: PULSE 60
[2019-11-02 14:13] VITALS: BP 107/58
== END 2019-11-02 14:32 | disposition home or self-care (01) ==
LOC: EDBD → CATHEP 10:10 → MERGE 11:30 → CATHEP 14:32
PROVIDERS: ATTEND Internal Medicine Cardiovascular Disease
DX: Z45.010 Encounter for checking and testing of cardiac pacemaker pulse generator [battery] (principal); I49.5 Sick sinus syndrome; I50.22 Chronic systolic (congestive) heart failure; J90 Pleural effusion, not elsewhere classified; Z87.891 Personal history of nicotine dependence; Z79.890 Hormone replacement therapy; Z79.899 Other long term (current) drug therapy
CPT/HCPCS: 33228; 80048; 85025; C1785; J0690 ×2; J2001; J3010

== ENCOUNTER 2020-06-22 11:33 | Emergency (ER) | payer MEDICARE, BC ==
[2020-06-22] MEDS ORDERED: SODIUM BICARB 8.4% 50 ML SYR (1 MEQ/ML) ONE (11:35)
[2020-06-22] MEDS ORDERED: EPINEPHrine 10 ML SYRINGE (0.1 MG/ML) ONE (11:35)
[2020-06-22] MEDS ORDERED: CALCIUM CHLORIDE 100 MG/ML 10 ML SYRINGE ONE (11:35)
--- NOTE | 2020-06-22 11:56 | ED ---
General Adult HPI - General Stated complaint: CPR - History of Present Illness Initial comments: Dictation was produced using Mayomi dictation software. please excuse any grammatical, word or spelling errors. This patient was cared for during a federal and state declared state of emergency secondary to Covid 19 Chief Complaint: 84 y Old male with cardiac history presents with cardiac arrest History of Present Illness: 84-year-old male past medical history of ALLERGIC cardiac disease. He presents today after cardiac arrest. According EMS who is the main provider HPI patient was seen by family be slumped over by the furnace. EMS arrived there and patient was found to be unresponsive. CPR was started within minutes. Patient allegedly received a total of 12 minutes of CPR per prehospital providers. He was found to have asystole initially. CPR started immediately. Patient then went into what appeared to them to be ventricular fibrillation. He was given a shot. At some point patient had 2 minutes of return of spontaneous circulation however he lost his pulse again. EMS provided patient with 4 rounds of epinephrine. He was intubated en route Unable to obtain review of systems secondary to mental status PHYSICAL EXAM: General Impression: Obtunded, fixed and dilated pupils HEENT: Normocephalic atraumatic Cardiovascular: Pulseless Chest: Bilateral lung sounds Abdomen: abdomen soft, nondistended Musculoskeletal: Varicosity of the lower extremities no peripheral edema Motor: No extremity movement Neurological: Unresponsive, fixed dilated pupils Skin: Mottled ED course: 84 yo Male presents with cardiac arrest. Patient was moved into trauma bay number 2. Patient was pulseless upon arrival. He did have what appeared to be organized rhythm on the monitor did initial presentation was consistent with pulseless electrical activity. CPR was continued. During one of the pulse checks patient was found to be in V. fib. He was given a defibrillation. CPR was continued. After 12 minutes of CPR in emergency department and a total of 21 minutes of total CPR between prehospital providers and emergency department, CPR was ceased. Point of care bedside ultrasound was performed showing no cardiac movement. Considering patient's age, comorbidities and clinical presentation patient was noted as at 11:46 AM. Patient case was discussed with patient's son, patient's daughter, patient's [id number] and 2 patient's grandchildren. They were notified that there are family member is now . Son reports that he checks on the patient every day. He went there in the morning and he was found to be slumped over in the furnace. Patient's son asked the patient if he wanted to come over to his house. He had no complaints at that time. By the time he was back to the car patient became unresponsive and stopped breathing. CPR was started immediately and 911 was called. Case is discussed with Flakita Hooper, medical malpractice paralegal. She will be following the case. - Related Data Home Medications Medication Instructions Recorded Confirmed Ferrous Sulfate [Iron (65 MG 325 mg PO HS 10/31/19 11/02/19 Elemental)] Furosemide [Lasix] 40 mg PO BID 10/31/19 11/02/19 Levothyroxine Sodium [Synthroid] 25 mcg PO DAILY 10/31/19 11/02/19 Potassium Chloride [Klor-Con 20] 20 meq PO DAILY 10/31/19 11/02/19 Sacubitril/Valsartan [Entresto 24 1 each PO BID 10/31/19 11/02/19 mg-26 mg Tablet] atenoloL [Tenormin] 25 mg PO DAILY 10/31/19 11/02/19 metOLazone [Zaroxolyn] 2.5 mg PO DAILY 10/31/19 11/02/19 Previous Rx's Medication Instructions Recorded Cephalexin [Keflex] 500 mg PO Q8HR 3 Days #9 cap 11/02/19 Allergies Allergy/AdvReac Type Severity Reaction Status Date / Time No Known Allergies Allergy Verified 11/01/19 12:05 Review of Systems ROS Statement: Those systems with pertinent positive or pertinent negative responses have been documented in the HPI. ROS Other: All systems not noted in ROS Statement are negative. Past Medical History Past Medical History: Heart Failure, Eye Disorder, Hearing Disorder / Deafness, Hypertension, Liver Disease, Myocardial Infarction (ID), Renal Disease, Thyroid Disorder Additional Past Medical History / Comment(s): see dr rosales H&P. "tricupsid and mitral valve leaking" experiencing shortness of breath. blind rt eye Last Myocardial Infarction Date:: 2007 History of Any Multi-Drug Resistant Organisms: None Reported Past Surgical History: Hernia Repair, Pacemaker Additional Past Surgical History / Comment(s): Thoracentesis, cataract removed right eye Past Anesthesia/Blood Transfusion Reactions: No Reported Reaction Type of Cardiac Device: Permanent Pacemaker Device Placement Date:: 04/12 Past Psychological History: No Psychological Hx Reported Past Alcohol Use History: None Reported Additional Past Alcohol Use History / Comment(s): quit smoking 2007, smoked 50 years 1-2ppd. occas. chewing tobacco Past Drug Use History: None Reported - Past Family History Mother Family Medical History: No Reported History Disposition Clinical Impression: Cardiac arrest Disposition: Condition: Undetermined Referrals: Marilyn Mauro MD [Primary Care Provider] - 1-2 days Time of Disposition: 12:08 Preliminary Cause of : cardiac arrest
== END 2020-06-22 12:20 | disposition expired ==
LOC: EC 11:33
DX: I46.9 Cardiac arrest, cause unspecified (principal); I11.0 Hypertensive heart disease with heart failure; I50.9 Heart failure, unspecified; I25.2 Old myocardial infarction; Z79.890 Hormone replacement therapy; Z79.899 Other long term (current) drug therapy; Z95.0 Presence of cardiac pacemaker; Z87.891 Personal history of nicotine dependence
CPT/HCPCS: 92950; 99285